=== PATIENT | male | born 1955 | race Caucasian/White ===

== ENCOUNTER → 2019-11-20 | Outpatient (CLI) | payer OTHER | END | disposition home or self-care (01) | LOC: LAB 10:48 | PROVIDERS: ATTEND Family Medicine | DX: M89.8X4 Other specified disorders of bone, hand (principal); M25.522 Pain in left elbow | CPT/HCPCS: 73080 ==

== ENCOUNTER → 2019-12-18 | Outpatient (CLI) | payer OTHER | END | disposition home or self-care (01) | LOC: LAB 08:29 | PROVIDERS: ATTEND Family Medicine | DX: N40.0 Benign prostatic hyperplasia without lower urinary tract symptoms (principal); E11.40 Type 2 diabetes mellitus with diabetic neuropathy, unspecified; M65.30 Trigger finger, unspecified finger; E11.9 Type 2 diabetes mellitus without complications; D75.1 Secondary polycythemia; R79.89 Other specified abnormal findings of blood chemistry ==

== ENCOUNTER 2020-08-06 02:29 | Emergency (ER) | payer OTHER ==
[2020-08-06] MEDS ORDERED: LIDOCAINE HCL 1% 20 ML VIAL ONE (02:51)
[2020-08-06] MEDS ORDERED: ACETAMINOPHEN EXTRA STRENGTH 500 MG TABLET ONE (03:24)
[2020-08-06] MEDS ORDERED: CLINDAMYCIN HCL 150 MG CAP ONE (03:24)
== END 2020-08-06 04:09 | disposition home or self-care (01) ==
LOC: EDH 02:29
DX: L02.212 Cutaneous abscess of back [any part, except buttock and flank] (principal); E11.9 Type 2 diabetes mellitus without complications; I10 Essential (primary) hypertension; Z90.49 Acquired absence of other specified parts of digestive tract
CPT/HCPCS: 10060

== ENCOUNTER 2020-08-07 22:29 | Emergency (ER) | payer OTHER | END 2020-08-07 23:24 | disposition home or self-care (01) | LOC: EDH 22:29 | DX: L02.222 Furuncle of back [any part, except buttock and flank] (principal); E11.9 Type 2 diabetes mellitus without complications; I10 Essential (primary) hypertension | CPT/HCPCS: 99281 ==

== ENCOUNTER → 2020-09-07 | Outpatient (CLI) | payer OTHER ==
[2020-09-07 09:55] LABS: BASOPHILS % (AUTO) 0.3 % (0.0-5.0); EOSINOPHILS % (AUTO) 3.5 % (0.0-8.0); HEMATOCRIT 44.4 % (42-54); LYMPHOCYTES % (AUTO) 36.8 % (21.0-51.0); MEAN CORPUSCULAR HEMOGLOBIN 31.5 pg (27.0-33.0); MEAN CORPUSCULAR HGB CONC 35.4 g/dL (32.0-36.0); MEAN CORPUSCULAR VOLUME 89.2 fL (79-99); MONOCYTES % (AUTO) 8.2 % (3.0-13.0); PLATELET COUNT (AUTO) 233 K/uL (130-400); RED BLOOD CELL COUNT(AUTO) 4.98 MIL/uL (4.50-6.20); RED CELL DISTRIBUTION WIDTH 12.9 % (11.0-15.5); WHITE BLOOD COUNT (AUTO) 9.2 K/uL (4.8-10.8)
[2020-09-07 09:57] LABS: APPEARANCE,URINE Clear (CLEAR); BILIRUBIN,URINE Negative (NEGATIVE); COLOR,URINE Yellow (YELLOW); GLUCOSE, URINE (UA) >=1000 mg/dL (NEGATIVE); KETONES,URINE Trace mg/dL (NEGATIVE); LEUKOCYTE ESTERASE ,URINE Negative (NEGATIVE); NITRATE,URINE Negative (NEGATIVE); OCCULT BLOOD,URINE Negative (NEGATIVE); PROTEIN,URINE Negative (NEGATIVE); UROBILINOGEN,URINE 0.2 mg/dL (0.2-1.0)
[2020-09-07 10:03] LABS: HEMOGLOBIN A1C 8.5 % (4.0-6.0)
[2020-09-07 10:13] LABS: RBC,URINE None Seen /HPF (0-1)
[2020-09-07 10:14] LABS: BACTERIA,URINE Rare /HPF (None Seen); SQUAMOUS EPITHELIAL CELL,UR None Seen /HPF (0-2); WBC,URINE 0-1 /HPF (0-1)
[2020-09-07 10:33] LABS: ALBUMIN 3.7 g/dL (3.5-5.0); BILIRUBIN,TOTAL 0.9 mg/dL (0.2-1.0); CREATININE 1.1 mg/dL (0.5-1.5); CRP QUANTITATIVE 4.9 mg/L (0.00-9.0); MAGNESIUM 1.9 mg/dL (1.80-2.40); POTASSIUM 3.7 mmol/L (3.5-5.1); THYROID STIMULATING HORMONE 4.58 uIU/mL (0.36-3.74); URIC ACID 6.4 mg/dL (2.6-7.2)
[2020-09-07 11:01] LABS: ERYTHROCYTE SEDIMENTATION RATE 3 MM/HR (0-20)
== END | disposition home or self-care (01) ==
LOC: RAH 07:31
PROVIDERS: ATTEND Family Medicine
DX: M16.11 Unilateral primary osteoarthritis, right hip (principal); R80.9 Proteinuria, unspecified; M25.522 Pain in left elbow; M25.50 Pain in unspecified joint; E11.40 Type 2 diabetes mellitus with diabetic neuropathy, unspecified; E78.5 Hyperlipidemia, unspecified; M25.551 Pain in right hip
CPT/HCPCS: 36415; 73502; 80053; 80061; 81001; 82043; 82306; 82607; 82627; 83036; 83090; 83735; 84153; 84154; 84403; 84439; 84443; 84481; 84550; 85025; 85651; 86140; 86376

== ENCOUNTER → 2020-10-12 | Outpatient (CLI) | payer OTHER | END | disposition home or self-care (01) | LOC: LAB 11:36 | PROVIDERS: ATTEND Internal Medicine Cardiovascular Disease | DX: Z20.822 Contact with and (suspected) exposure to COVID-19 (principal) | CPT/HCPCS: C9803; U0003 ==

== ENCOUNTER 2023-05-09 10:19 | Emergency (ER) | payer OTHER, MEDICARE ==
[~2023-05-09 10:19] MED LIST: GABA300C PO; IBUP-2070 PO; METH-811 PO; PRED20TA3 PO
[2023-05-09 10:33] VITALS: O2SAT 98
[2023-05-09 10:47] LABS: BASOPHILS # (AUTO) 0.04 K/uL (0.00-0.20); BASOPHILS % (AUTO) 0.6 % (0.0-5.0); EOSINOPHILS # (AUTO) 0.12 K/uL (0.00-0.70); EOSINOPHILS % (AUTO) 1.7 % (0.0-8.0); HEMATOCRIT 45.5 % (42-54); IMMATURE GRANULOCYTE ABSOLUTE 0.05 K/uL (0-1); LYMPHOCYTES # (AUTO) 2.4 K/uL (1.0-4.8); LYMPHOCYTES % (AUTO) 34.5 % (21.0-51.0); MEAN CORPUSCULAR HEMOGLOBIN 32.1 pg (27.0-33.0); MEAN CORPUSCULAR HGB CONC 35.4 g/dL (32.0-36.0); MEAN CORPUSCULAR VOLUME 90.6 fL (79-99); MONOCYTES # (AUTO) 0.6 K/uL (0.1-1.0); MONOCYTES % (AUTO) 8.7 % (3.0-13.0); NEUTROPHILS # (AUTO) 3.8 K/uL (1.8-7.7); NEUTROPHILS % (AUTO) 53.8 % (40.0-77.0); PLATELET COUNT (AUTO) 310 K/uL (130-400); RED BLOOD CELL COUNT(AUTO) 5.02 MIL/uL (4.50-6.20); RED CELL DISTRIBUTION WIDTH 12.8 % (11.0-15.5)
[2023-05-09 11:06] LABS: B-TYPE NATRIURETIC PEPTIDE 23 pg/mL (0-100)
[2023-05-09 11:15] LABS: CREATININE 1.1 mg/dL (0.5-1.5); POTASSIUM 4.2 mmol/L (3.5-5.1)
[2023-05-09 11:20] LABS: BILIRUBIN,TOTAL 0.8 mg/dL (0.2-1.0); MAGNESIUM 1.8 mg/dL (1.80-2.40); TOTAL PROTEIN, SERUM 7.7 g/dL (6.0-8.3)
[2023-05-09] MEDS ORDERED: KETOROLAC 15MG/ML VIAL (15MG/ML) IV ONE (13:00)
[2023-05-09 15:08] VITALS: BP 170/76; PULSE 72; RESP 18
[2023-05-09] MEDS ORDERED: NAPR-1180 PO (15:10)
[2023-05-09 21:21] LABS: ADD UA MICROSCOPIC YES; APPEARANCE,URINE CLEAR (CLEAR); BILIRUBIN,URINE NEGATIVE (NEGATIVE); COLOR,URINE LIGHT-YELLOW (YELLOW); GLUCOSE, URINE (UA) >=1000 mg/dL (NEGATIVE); KETONES,URINE NEGATIVE (NEGATIVE); LEUKOCYTE ESTERASE ,URINE NEGATIVE Leu/uL (NEGATIVE); NITRATE,URINE NEGATIVE (NEGATIVE); OCCULT BLOOD,URINE NEGATIVE (NEGATIVE); PROTEIN,URINE 10 mg/dL (NEGATIVE); UROBILINOGEN,URINE 0.2 mg/dL (0.2-1.0)
[2023-05-09 21:23] LABS: MUCUS,URINE RARE LPF (None Seen); RBC,URINE 0-1 /HPF (0-1); SQUAMOUS EPITHELIAL CELL,UR RARE /HPF (0-2); WBC,URINE 0-1 /HPF (0-1)
== END 2023-05-09 15:23 | disposition home or self-care (01) ==
LOC: EDH 10:19
DX: R07.89 Other chest pain (principal); I10 Essential (primary) hypertension; Z79.899 Other long term (current) drug therapy
CPT/HCPCS: 99285; 96374; 71045; 82550; 83735; 84484 ×2; 80053; 83880; 85025; 85378; 85730; 81001; 36415; 93005; J1885

== ENCOUNTER → 2023-05-11 | Outpatient (CLI) | payer OTHER, MEDICARE ==
[~2023-05-11] MED LIST changes: +NAPR-1180 PO
[2023-05-11 09:04] LABS: HEMOGLOBIN A1C 9.8 % (4.0-6.0)
[2023-05-11 09:25] LABS: ALBUMIN 3.8 g/dL (3.5-5.0); BILIRUBIN,TOTAL 0.8 mg/dL (0.2-1.0); CREATININE 1.1 mg/dL (0.5-1.5); POTASSIUM 4.4 mmol/L (3.5-5.1); THYROID STIMULATING HORMONE 3.18 uIU/mL (0.36-3.74); TOTAL PROTEIN, SERUM 7.6 g/dL (6.0-8.3)
[2023-05-11 09:32] LABS: T4 (THYROXINE) 8.8 ug/dL (4.7-13.3)
== END | disposition home or self-care (01) ==
LOC: RAH 07:38
PROVIDERS: ATTEND Physical Medicine & Rehabilitation
DX: M16.0 Bilateral primary osteoarthritis of hip (principal)
CPT/HCPCS: 36415; 73521; 80053; 83036; 84436; 84443; 84479

== ENCOUNTER → 2023-05-29 | Outpatient (CLI) | payer OTHER, MEDICARE ==
[2023-05-29 08:26] LABS: CHOLESTEROL 289 mg/dL (<200); HDL CHOLESTEROL 50 mg/dL (29-71); LDL DIRECT 164 mg/dL (0-99); TRIGLYCERIDES 328 mg/dL (30-200)
== END | disposition home or self-care (01) ==
LOC: LAB 07:50
PROVIDERS: ATTEND Internal Medicine
DX: Z12.11 Encounter for screening for malignant neoplasm of colon (principal); I12.9 Hypertensive chronic kidney disease with stage 1 through stage 4 chronic kidney disease, or unspecified chronic kidney disease; N18.9 Chronic kidney disease, unspecified; E78.2 Mixed hyperlipidemia
CPT/HCPCS: 36415; 80061; 82043; 82570; 84153

== ENCOUNTER 2023-06-20 05:52 | Day surgery (SDC) | payer OTHER, MEDICARE ==
[~2023-06-20] VITALS: Ht 170.2 cm; Wt 74.8 kg
[2023-06-20] VITALS (11 sets, daily range): BP systolic 118–145; BP diastolic 59–96; PULSE 66–88; RESP 15–17
[~2023-06-20 05:52] MED LIST changes: +EMPA10TA PO; -GABA300C PO; -IBUP-2070 PO; +LISI20TA24 PO; +METF-444 PO; -METH-811 PO; +NAPR-1023 PO; -NAPR-1180 PO; -PRED20TA3 PO
[2023-06-20] MEDS ORDERED: 0.9%NACL 1000ML 1,000 ML IV ONE (06:30)
[2023-06-20] MEDS ORDERED: PROPOFOL 10 MG/ML 20ML VIAL IV ONE ×2 (08:14)
== END 2023-06-20 10:00 | disposition home or self-care (01) ==
LOC: DAH 05:52 → ENDO 05:52
PROVIDERS: ATTEND Internal Medicine Gastroenterology
DX: Z12.11 Encounter for screening for malignant neoplasm of colon (principal); K21.00 Gastro-esophageal reflux disease with esophagitis, without bleeding; D12.4 Benign neoplasm of descending colon; K62.1 Rectal polyp; K57.30 Diverticulosis of large intestine without perforation or abscess without bleeding; R07.89 Other chest pain; K29.50 Unspecified chronic gastritis without bleeding; I10 Essential (primary) hypertension; E11.9 Type 2 diabetes mellitus without complications; Z90.89 Acquired absence of other organs; Z79.84 Long term (current) use of oral hypoglycemic drugs; Z79.899 Other long term (current) drug therapy
CPT/HCPCS: 82948 ×2; 43239; 45380; 45385; J7030 ×2; J2704 ×2; A4620; A4215 ×2; A4223; A4657; A7002; A4222; A4221; A4663; A4606; J3490

== ENCOUNTER → 2023-08-10 | Outpatient (CLI) | payer OTHER, MEDICARE ==
[2023-08-10 08:21] LABS: BASOPHILS # (AUTO) 0.03 K/uL (0.00-0.20); BASOPHILS % (AUTO) 0.4 % (0.0-5.0); EOSINOPHILS # (AUTO) 0.09 K/uL (0.00-0.70); EOSINOPHILS % (AUTO) 1.3 % (0.0-8.0); HEMATOCRIT 45.9 % (42-54); IMMATURE GRANULOCYTE ABSOLUTE 0.04 K/uL (0-1); LYMPHOCYTES # (AUTO) 1.4 K/uL (1.0-4.8); LYMPHOCYTES % (AUTO) 19.8 % (21.0-51.0); MEAN CORPUSCULAR HEMOGLOBIN 31.4 pg (27.0-33.0); MEAN CORPUSCULAR HGB CONC 34.6 g/dL (32.0-36.0); MEAN CORPUSCULAR VOLUME 90.7 fL (79-99); MONOCYTES # (AUTO) 0.5 K/uL (0.1-1.0); MONOCYTES % (AUTO) 6.8 % (3.0-13.0); NEUTROPHILS % (AUTO) 71.1 % (40.0-77.0); PLATELET COUNT (AUTO) 308 K/uL (130-400); RED BLOOD CELL COUNT(AUTO) 5.06 MIL/uL (4.50-6.20); RED CELL DISTRIBUTION WIDTH 12.5 % (11.0-15.5)
[2023-08-10 08:35] LABS: INR <= 0.93 (0.85-1.15); PROTHROMBIN TIME 10.5 SEC (9.6-11.6)
[2023-08-10 08:37] LABS: HEMOGLOBIN A1C 9.6 % (4.0-6.0); PARTIAL THROMBOPLASTIN TIME 28.2 SEC (26.3-35.5)
[2023-08-10 08:49] LABS: ALBUMIN 4.1 g/dL (3.5-5.0); BILIRUBIN,TOTAL 0.7 mg/dL (0.2-1.0); CREATININE 1.2 mg/dL (0.5-1.5); POTASSIUM 4.5 mmol/L (3.5-5.1); THYROID STIMULATING HORMONE 3.61 uIU/mL (0.36-3.74); TOTAL PROTEIN, SERUM 7.5 g/dL (6.0-8.3)
== END | disposition home or self-care (01) ==
LOC: LAB 07:00
PROVIDERS: ATTEND Internal Medicine
DX: Z01.818 Encounter for other preprocedural examination (principal); Z13.29 Encounter for screening for other suspected endocrine disorder; N40.1 Benign prostatic hyperplasia with lower urinary tract symptoms; E78.2 Mixed hyperlipidemia; E11.65 Type 2 diabetes mellitus with hyperglycemia
CPT/HCPCS: 36415; 80053; 80061; 82043; 82570; 83036; 84153; 84443; 85025; 85610; 85730

== ENCOUNTER 2023-09-24 11:32 | Emergency (ER) | payer OTHER, MEDICARE ==
[~2023-09-24] VITALS: Ht 170.2 cm; Wt 77.1 kg
[2023-09-24 12:29] LABS: BASOPHILS # (AUTO) 0.04 K/uL (0.00-0.20); BASOPHILS % (AUTO) 0.5 % (0.0-5.0); EOSINOPHILS # (AUTO) 0.39 K/uL (0.00-0.70); EOSINOPHILS % (AUTO) 5.1 % (0.0-8.0); HEMATOCRIT 47.2 % (42-54); IMMATURE GRANULOCYTE ABSOLUTE 0.02 K/uL (0-1); LYMPHOCYTES # (AUTO) 1.9 K/uL (1.0-4.8); LYMPHOCYTES % (AUTO) 24.3 % (21.0-51.0); MEAN CORPUSCULAR HEMOGLOBIN 31.5 pg (27.0-33.0); MEAN CORPUSCULAR HGB CONC 35.4 g/dL (32.0-36.0); MEAN CORPUSCULAR VOLUME 89.1 fL (79-99); MONOCYTES # (AUTO) 0.5 K/uL (0.1-1.0); MONOCYTES % (AUTO) 6.9 % (3.0-13.0); NEUTROPHILS # (AUTO) 4.8 K/uL (1.8-7.7); NEUTROPHILS % (AUTO) 62.9 % (40.0-77.0); PLATELET COUNT (AUTO) 264 K/uL (130-400); RED CELL DISTRIBUTION WIDTH 13.1 % (11.0-15.5); WHITE BLOOD COUNT (AUTO) 7.7 K/uL (4.8-10.8)
[2023-09-24] MEDS: 0.9%NACL 1000ML 1,000 ML IV ONE (12:35)
[2023-09-24 12:42] LABS: CREATININE 1.4 mg/dL (0.5-1.3); POTASSIUM 4.3 mmol/L (3.5-5.1)
[2023-09-24 12:46] LABS: ALBUMIN 3.9 g/dL (3.5-5.0); BILIRUBIN,TOTAL 0.9 mg/dL (0.2-1.0); MAGNESIUM 1.7 mg/dL (1.80-2.40); TOTAL PROTEIN, SERUM 7.1 g/dL (6.0-8.3)
[2023-09-24 15:42] VITALS: BP 115/96; PULSE 78; RESP 18; O2SAT 99
== END 2023-09-24 15:52 | disposition home or self-care (01) ==
LOC: EDH 11:32
DX: N17.9 Acute kidney failure, unspecified (principal); I95.9 Hypotension, unspecified; E86.0 Dehydration; I10 Essential (primary) hypertension; E11.9 Type 2 diabetes mellitus without complications; E78.00 Pure hypercholesterolemia, unspecified; Z79.84 Long term (current) use of oral hypoglycemic drugs; Z79.899 Other long term (current) drug therapy; Z90.89 Acquired absence of other organs; Z98.890 Other specified postprocedural states
CPT/HCPCS: 99285; 96360; 71045; 83735; 84484; 80053; 85025; 36415; 93005; J7030

== ENCOUNTER 2023-11-19 15:12 | Observation (INO) | payer OTHER, MEDICARE ==
[~2023-11-19] VITALS: Ht 170.2 cm; Wt 72.8 kg
[2023-11-19] MEDS ORDERED: IOHEXOL-350 75 ML VIAL IV ONE (15:30)
[2023-11-19 15:44] LABS: BASOPHILS # (AUTO) 0.04 K/uL (0.00-0.20); BASOPHILS % (AUTO) 0.5 % (0.0-5.0); EOSINOPHILS # (AUTO) 0.06 K/uL (0.00-0.70); EOSINOPHILS % (AUTO) 0.7 % (0.0-8.0); HEMATOCRIT 45.7 % (42-54); IMMATURE GRANULOCYTE ABSOLUTE 0.05 K/uL (0-1); LYMPHOCYTES # (AUTO) 2.2 K/uL (1.0-4.8); LYMPHOCYTES % (AUTO) 25.7 % (21.0-51.0); MEAN CORPUSCULAR HEMOGLOBIN 31.3 pg (27.0-33.0); MEAN CORPUSCULAR HGB CONC 34.6 g/dL (32.0-36.0); MEAN CORPUSCULAR VOLUME 90.5 fL (79-99); MONOCYTES # (AUTO) 0.7 K/uL (0.1-1.0); MONOCYTES % (AUTO) 7.8 % (3.0-13.0); NEUTROPHILS # (AUTO) 5.4 K/uL (1.8-7.7); NEUTROPHILS % (AUTO) 64.7 % (40.0-77.0); PLATELET COUNT (AUTO) 302 K/uL (130-400); RED BLOOD CELL COUNT(AUTO) 5.05 MIL/uL (4.50-6.20); RED CELL DISTRIBUTION WIDTH 12.8 % (11.0-15.5); WHITE BLOOD COUNT (AUTO) 8.4 K/uL (4.8-10.8)
[2023-11-19 15:56] LABS: INR <= 0.93 (0.85-1.15); PROTHROMBIN TIME 10.9 SEC (9.6-11.6)
[2023-11-19 15:57] LABS: PARTIAL THROMBOPLASTIN TIME 26.2 SEC (26.3-35.5)
[2023-11-19 16:01] LABS: B-TYPE NATRIURETIC PEPTIDE 35 pg/mL (0-100)
[2023-11-19 16:02] LABS: ALBUMIN 3.7 g/dL (3.5-5.0); BILIRUBIN,TOTAL 0.7 mg/dL (0.2-1.0); CREATININE 1.7 mg/dL (0.5-1.3); POTASSIUM 4.4 mmol/L (3.5-5.1)
[2023-11-19] MEDS ORDERED: OMEP40CA21 PO (16:53)
[2023-11-19] MEDS ORDERED: DULA0.75 SQ (16:53)
[2023-11-19] MEDS ORDERED: LISI10TA24 PO (16:53)
[2023-11-19] MEDS ORDERED: METF-444 PO (16:53)
[2023-11-19] MEDS ORDERED: TAMS-1 PO (16:53)
[2023-11-19] MEDS: ASPIRIN 325MG EC TAB PO ONE (17:26)
[2023-11-19] MEDS: 0.9%NACL 1000ML 1,000 ML IV SCH (17:26)
[2023-11-19] MEDS ORDERED: ONDANSETRON 4MG INJ IV PRN (17:30)
[2023-11-19] MEDS ORDERED: DEXTROSE 50%-WATER 50 ML DISP.SYRIN IV PRN (17:30)
[2023-11-19] MEDS ORDERED: MAG/ALUM/SIMETH 30 ML UDCUP PO PRN (17:30)
[2023-11-19] MEDS ORDERED: GLUCAGON 1MG KIT 1 MG ML IM PRN (17:30)
[2023-11-19] MEDS ORDERED: ACETAMINOPHEN 325 MG TAB PO PRN ×2 (17:30)
[2023-11-19] MEDS ORDERED: POTASSIUM CHLORIDE 20MEQ/100ML 100 ML IV PRN (17:30)
[2023-11-19] MEDS ORDERED: LACTULOSE 20 GM/30 ML UDCUP PO PRN (17:30)
[2023-11-19] MEDS ORDERED: POTASSIUM CHLORIDE 10% ELIXIR 20 MEQ/15 ML UDCUP PO PRN (17:30)
[2023-11-19] MEDS ORDERED: KCL 20 MEQ ERTAB PO PRN (17:30)
[2023-11-19 19:35] VITALS: O2SAT 100
[2023-11-19] MEDS: ATORVASTATIN 20 MG TABLET PO SCH (20:52)
[2023-11-19] MEDS: INSULIN HUMULIN R 100 UNIT/ML 3ML SQ SCH (21:00)
[2023-11-19 21:30] VITALS: BP 156/75; PULSE 73; RESP 20
[2023-11-19 23:08] VITALS: BP 148/72; PULSE 70; RESP 18
[2023-11-20 03:35] VITALS: BP 139/79; PULSE 67; RESP 19
[2023-11-20 05:10] LABS: HEMATOCRIT 39.5 % (42-54); MEAN CORPUSCULAR HEMOGLOBIN 30.9 pg (27.0-33.0); MEAN CORPUSCULAR HGB CONC 34.9 g/dL (32.0-36.0); MEAN CORPUSCULAR VOLUME 88.6 fL (79-99); RED BLOOD CELL COUNT(AUTO) 4.46 MIL/uL (4.50-6.20); RED CELL DISTRIBUTION WIDTH 12.8 % (11.0-15.5); WHITE BLOOD COUNT (AUTO) 6.2 K/uL (4.8-10.8)
[2023-11-20 05:23] LABS: CREATININE 1.1 mg/dL (0.5-1.3)
[2023-11-20 08:20] VITALS: BP 143/84; PULSE 74; RESP 16
[2023-11-20] MEDS: PANTOPRAZOLE 40 MG TAB DR PO SCH (08:59)
[2023-11-20] MEDS: CLOPIDOGREL 75MG TAB PO SCH (08:59)
[2023-11-20] MEDS: EMPAGLIFLOZIN 10MG TABLET PO SCH (08:59)
[2023-11-20] MEDS: ASPIRIN 81 MG EC TAB PO SCH (08:59)
[2023-11-20] MEDS: LISINOPRIL 10 MG TABLET PO SCH (09:00)
[2023-11-20 11:41] VITALS: BP 141/85; PULSE 62; RESP 16
[2023-11-20 15:56] VITALS: BP 157/86; PULSE 73; RESP 16
[2023-11-20] MEDS: TAMSULOSIN HCL 0.4 MG CAP.ER.24H PO SCH (16:43)
[2023-11-20] MEDS ORDERED: ROSU20TA73 PO (18:05)
[2023-11-20] MEDS ORDERED: AEC81 PO (18:07)
== END 2023-11-20 19:40 | disposition home or self-care (01) ==
LOC: EDH 15:12 → EDHIP 17:08 → 4CH 19:52
PROVIDERS: ADMIT Internal Medicine; ATTEND Internal Medicine
DX: R47.81 Slurred speech (principal); R42 Dizziness and giddiness; I63.9 Cerebral infarction, unspecified; I10 Essential (primary) hypertension; E11.65 Type 2 diabetes mellitus with hyperglycemia; G45.9 Transient cerebral ischemic attack, unspecified; E78.5 Hyperlipidemia, unspecified; N40.0 Benign prostatic hyperplasia without lower urinary tract symptoms; N40.1 Benign prostatic hyperplasia with lower urinary tract symptoms; K21.9 Gastro-esophageal reflux disease without esophagitis; N13.8 Other obstructive and reflux uropathy; Z79.899 Other long term (current) drug therapy; Z79.84 Long term (current) use of oral hypoglycemic drugs; Z86.73 Personal history of transient ischemic attack (TIA), and cerebral infarction without residual deficits; Z79.82 Long term (current) use of aspirin
CPT/HCPCS: 96360; 96361 ×2; 82550; 83721; 84484; 80053; 83880; 85025; 85610; 85730; 82948 ×5; 36415 ×2; 71045; 70450; 70496; 70498; 70551; 99291; 93005; 96372; 80048; 85027; 92522; 92610; G0378 ×25; J7030; Q9967; 59025; G0379

== ENCOUNTER → 2023-12-11 | Outpatient (CLI) | payer OTHER, MEDICARE ==
[~2023-12-11] MED LIST changes: +AEC81 PO; +DULA0.75 SQ; -LISI20TA24 PO; -METF-444 PO; -NAPR-1023 PO; +OMEP40CA21 PO; +ROSU20TA73 PO; +TAMS-1 PO
[2023-12-11 15:26] LABS: ALBUMIN 3.8 g/dL (3.5-5.0); BILIRUBIN,TOTAL 0.8 mg/dL (0.2-1.0); CREATININE 1.1 mg/dL (0.5-1.3); POTASSIUM 4.1 mmol/L (3.5-5.1); TOTAL PROTEIN, SERUM 7.3 g/dL (6.0-8.3)
[2023-12-11 15:28] LABS: HEMOGLOBIN A1C 9.2 % (4.0-6.0)
== END | disposition home or self-care (01) ==
LOC: RAH 14:33
PROVIDERS: ATTEND Internal Medicine
DX: M47.816 Spondylosis without myelopathy or radiculopathy, lumbar region (principal); M16.11 Unilateral primary osteoarthritis, right hip; M25.851 Other specified joint disorders, right hip; E78.2 Mixed hyperlipidemia; E11.65 Type 2 diabetes mellitus with hyperglycemia; M25.551 Pain in right hip; M54.59 Other low back pain
CPT/HCPCS: 36415; 72100; 73502; 80053; 80061; 82043; 82570; 83036

== ENCOUNTER → 2024-02-11 | Outpatient (CLI) | payer OTHER, MEDICARE ==
[2024-02-11] MEDS: REGADENOSON 0.4 MG/5 ML PF SYG IVP ONE (10:15)
== END | disposition home or self-care (01) ==
LOC: SHCH 08:26
PROVIDERS: ATTEND Internal Medicine Cardiovascular Disease
DX: I25.10 Atherosclerotic heart disease of native coronary artery without angina pectoris (principal); R06.00 Dyspnea, unspecified
CPT/HCPCS: 78452; 96374; 93017; J2785; A9500 ×2

== ENCOUNTER → 2024-06-27 | Outpatient (CLI) | payer OTHER, MEDICARE ==
[~2024-06-27] MED LIST changes: -ROSU20TA73 PO; +ROSU20TA98 PO
[2024-06-27 08:01] LABS: BASOPHILS # (AUTO) 0.03 K/uL (0.00-0.20); BASOPHILS % (AUTO) 0.4 % (0.0-5.0); EOSINOPHILS # (AUTO) 0.16 K/uL (0.00-0.70); EOSINOPHILS % (AUTO) 2.2 % (0.0-8.0); HEMATOCRIT 45.4 % (42-54); IMMATURE GRANULOCYTE ABSOLUTE 0.03 K/uL (0-1); LYMPHOCYTES # (AUTO) 2.8 K/uL (1.0-4.8); LYMPHOCYTES % (AUTO) 38.2 % (21.0-51.0); MEAN CORPUSCULAR HEMOGLOBIN 31.5 pg (27.0-33.0); MEAN CORPUSCULAR VOLUME 89.9 fL (79-99); MONOCYTES # (AUTO) 0.7 K/uL (0.1-1.0); MONOCYTES % (AUTO) 9.5 % (3.0-13.0); NEUTROPHILS # (AUTO) 3.7 K/uL (1.8-7.7); NEUTROPHILS % (AUTO) 49.3 % (40.0-77.0); PLATELET COUNT (AUTO) 293 K/uL (130-400); RED BLOOD CELL COUNT(AUTO) 5.05 MIL/uL (4.50-6.20); RED CELL DISTRIBUTION WIDTH 13.2 % (11.0-15.5); WHITE BLOOD COUNT (AUTO) 7.4 K/uL (4.8-10.8)
[2024-06-27 08:17] LABS: HEMOGLOBIN A1C 7.4 % (4.0-6.0)
[2024-06-27 08:25] LABS: ALBUMIN 3.4 g/dL (3.5-5.0); BILIRUBIN,TOTAL 0.7 mg/dL (0.2-1.0); CREATININE 1.3 mg/dL (0.5-1.3); POTASSIUM 4.1 mmol/L (3.5-5.1); TOTAL PROTEIN, SERUM 6.9 g/dL (6.0-8.3)
== END | disposition home or self-care (01) ==
LOC: LAB 07:14
PROVIDERS: ATTEND Internal Medicine
DX: I12.9 Hypertensive chronic kidney disease with stage 1 through stage 4 chronic kidney disease, or unspecified chronic kidney disease (principal); N18.9 Chronic kidney disease, unspecified; E11.22 Type 2 diabetes mellitus with diabetic chronic kidney disease; E78.2 Mixed hyperlipidemia
CPT/HCPCS: 36415; 80053; 80061; 83036; 85025

== ENCOUNTER → 2024-07-21 | Outpatient (CLI) | payer OTHER, MEDICARE | END | disposition home or self-care (01) | LOC: LAB 10:31 | PROVIDERS: ATTEND Urology | DX: E29.1 Testicular hypofunction (principal) | CPT/HCPCS: 36415; 84402; 84403 ==

== ENCOUNTER → 2024-08-06 | Outpatient (CLI) | payer OTHER, MEDICARE ==
[2024-08-06 09:14] LABS: BASOPHILS # (AUTO) 0.03 K/uL (0.00-0.20); BASOPHILS % (AUTO) 0.4 % (0.0-5.0); EOSINOPHILS # (AUTO) 0.17 K/uL (0.00-0.70); EOSINOPHILS % (AUTO) 2.2 % (0.0-8.0); HEMATOCRIT 48.4 % (42-54); IMMATURE GRANULOCYTE ABSOLUTE 0.03 K/uL (0-1); LYMPHOCYTES # (AUTO) 2.5 K/uL (1.0-4.8); LYMPHOCYTES % (AUTO) 31.8 % (21.0-51.0); MEAN CORPUSCULAR HEMOGLOBIN 31.1 pg (27.0-33.0); MEAN CORPUSCULAR HGB CONC 33.9 g/dL (32.0-36.0); MEAN CORPUSCULAR VOLUME 91.7 fL (79-99); MONOCYTES # (AUTO) 0.5 K/uL (0.1-1.0); MONOCYTES % (AUTO) 6.9 % (3.0-13.0); NEUTROPHILS # (AUTO) 4.5 K/uL (1.8-7.7); NEUTROPHILS % (AUTO) 58.3 % (40.0-77.0); PLATELET COUNT (AUTO) 290 K/uL (130-400); RED BLOOD CELL COUNT(AUTO) 5.28 MIL/uL (4.50-6.20); RED CELL DISTRIBUTION WIDTH 12.5 % (11.0-15.5); WHITE BLOOD COUNT (AUTO) 7.7 K/uL (4.8-10.8)
[2024-08-06 09:23] LABS: HEMOGLOBIN A1C 6.9 % (4.0-6.0)
[2024-08-06 09:41] LABS: ALBUMIN 3.7 g/dL (3.5-5.0); POTASSIUM 4.5 mmol/L (3.5-5.1); THYROID STIMULATING HORMONE 3.39 uIU/mL (0.36-3.74); TOTAL PROTEIN, SERUM 7.4 g/dL (6.0-8.3)
[2024-08-06 09:53] LABS: ADD UA MICROSCOPIC YES; APPEARANCE,URINE CLEAR (CLEAR); BILIRUBIN,URINE NEGATIVE (NEGATIVE); COLOR,URINE LIGHT-YELLOW (YELLOW); GLUCOSE, URINE (UA) >=1000 mg/dL (NEGATIVE); KETONES,URINE 10 mg/dL (NEGATIVE); LEUKOCYTE ESTERASE ,URINE NEGATIVE Leu/uL (NEGATIVE); NITRATE,URINE NEGATIVE (NEGATIVE); OCCULT BLOOD,URINE NEGATIVE (NEGATIVE); PH,URINE 5.5 (5.0-8.0); PROTEIN,URINE 20 mg/dL (NEGATIVE); UROBILINOGEN,URINE 0.2 mg/dL (0.2-1.0)
[2024-08-06 10:10] LABS: INR 0.96 (0.85-1.15); PROTHROMBIN TIME 10.8 SEC (9.6-11.6)
[2024-08-06 10:11] LABS: PARTIAL THROMBOPLASTIN TIME 29.9 SEC (26.3-35.5)
[2024-08-06 10:14] LABS: RBC,URINE 0-1 /HPF (0-1)
[2024-08-06 10:15] LABS: BACTERIA,URINE None Seen /HPF (None Seen); SQUAMOUS EPITHELIAL CELL,UR 0-2 /HPF (0-2)
--- NOTE | 2024-08-06 10:33 | HMCIMG ---
Exam Type: CHEST PA, LATERAL AND LORDOTIC Clinical Information: ENCOUNTER FOR OTHER PREPROCEDURAL EXAMINATION Comparison: None Findings: The lungs are clear of infiltrates. The heart is normal in size. The bony and soft tissue structures of the chest are unremarkable. Impression: Clear lungs.
== END | disposition home or self-care (01) ==
LOC: LAB 08:04
PROVIDERS: ATTEND Internal Medicine
DX: Z01.818 Encounter for other preprocedural examination (principal); N40.1 Benign prostatic hyperplasia with lower urinary tract symptoms; I12.9 Hypertensive chronic kidney disease with stage 1 through stage 4 chronic kidney disease, or unspecified chronic kidney disease; E11.22 Type 2 diabetes mellitus with diabetic chronic kidney disease; E11.65 Type 2 diabetes mellitus with hyperglycemia; N18.2 Chronic kidney disease, stage 2 (mild); E78.2 Mixed hyperlipidemia; R97.20 Elevated prostate specific antigen [PSA]; M48.02 Spinal stenosis, cervical region
CPT/HCPCS: 36415; 71047; 80053; 80061; 81001; 82043; 82570; 83036; 84153; 84443; 85025; 85610; 85730

== ENCOUNTER → 2024-08-07 | Outpatient (CLI) | payer OTHER, MEDICARE | END | disposition home or self-care (01) | LOC: LAB 07:28 | PROVIDERS: ATTEND Urology | DX: E29.1 Testicular hypofunction (principal) | CPT/HCPCS: 36415; 84402; 84403 ==

== ENCOUNTER 2024-08-25 05:43 | Inpatient (IN) | payer OTHER, MEDICARE ==
[2024-08-20 11:57] VITALS: BP 144/67; PULSE 78; RESP 15; TEMP 98.4
[2024-08-25] VITALS (25 sets, daily range): BP systolic 120–165; BP diastolic 66–91; PULSE 67–97; RESP 14–20; TEMP 97.1–98.7; O2SAT 94–97
[~2024-08-25] VITALS: Ht 170.2 cm; Wt 73.9 kg
[~2024-08-25 05:43] MED LIST changes: -DULA0.75 SQ; +METF-446 PO; -ROSU20TA98 PO; +ROSU40TA88 PO; +TESTOSTERONE INJ; +TRULICITY SQ
[2024-08-25] MEDS: acetaMINOPHEN 100 ML ONE (06:37)
[2024-08-25] MEDS: FAMOTIDINE 20MG VIAL IV ONE (06:37)
[2024-08-25] MEDS ORDERED: ROPivacaine 0.5% 5MG/ML 30ML ONE (06:38)
[2024-08-25] MEDS ORDERED: ketaMINE 50MG/ML SYRINGE 50 MG/ML DISP.SYRIN ONE (06:38)
[2024-08-25] MEDS ORDERED: LIDOCAINE PF 100MG/5ML (2%) SYRINGE 5ML ONE (06:43)
[2024-08-25] MEDS ORDERED: proPOFol 10 MG/ML 20ML VIAL IV ONE (06:44)
[2024-08-25] MEDS ORDERED: FENTanyl CITRate PF 50 MCG/1 ML 2ML VIAL ONE (06:44)
[2024-08-25] MEDS ORDERED: rocuRONium bROMide 10MG/1ML 5ML VL ONE (06:44)
[2024-08-25] MEDS: ceFAZolin SODIUM 2 GM VIAL ONE (06:48)
[2024-08-25] MEDS: 0.9%NACL 1000ML 1,000 ML IV ONE (06:48)
[2024-08-25] MEDS ORDERED: TRANEXAMIC ACID 1000MG/10ML ONE (06:51)
--- NOTE | 2024-08-25 07:18 | DS ---
Discharge Summary Hospital Course Summary: The patient was admitted to the hospital postoperatively on 08/25/2024 after undergoing right total hip arthroplasty. They did well with routine postoperative pain control. They worked well with physical therapy. They developed some acute blood loss anemia but remained asymptomatic. The hospital course was otherwise uncomplicated. They were subsequently able to be discharged on postoperative day [] once discharge arrangements were made with []. Perianesthesia Nurse(s): none Procedure(s): Right total hip arthroplasty, 08/25/2024 Assessment/Plan: ASSESSMENT: Status post right total hip arthroplasty PLAN: See discharge instructions Discharge Instructions: Begin working with physical therapy at the facility. Remembered do not flex the hip more than 90 and do not cross midline at the knees or ankles for the 1st six weeks. If you are side sleeper place a pillow between the knees and ankles to prevent the legs from crossing. Dressing may be removed 08/27/2024 and left open to air. Showers ok allowing soap and water to run over the wound. Pat dry. Do not submerge wound in tub/pool. Do not apply ointments. Do not apply Betadine. Do not apply peroxide. Ice packs to decrease pain/swelling. Prescriptions have been sent to the pharmacy: *[place] 5/325mg 1-2 tab every 6 hours as needed for severe pain. (please call for refills) Cyclobenzaprine 5mg 1 tab every 8 hours as needed for muscle spasm pain. Gabapentin 100mg 1 tab every 8 hours (may discontinue if drowsy). Colace 100mg 1 tab orally twice a day as needed for constipation. Aspirin 325mg twice a day for 30 days to prevent blood clots. Then you may resume your normal baby aspirin. Call for a follow-up appointment in 2-3 weeks at [facility]. Home Medications: Active Scripts Aspirin (ASPIRIN 81 MG ECTAB) 81 Mg Ectab, 81 MG PO DAILY, #90 TAB.EC Prov:MELANIE BROOKS MD 11/20/23 Tamsulosin HCl (Flomax) 0.4 Mg Cap.er.24h, 0.4 MG PO DAILYDINNER, #90 CAPSULE. Prov:MELANIE BROOKS MD 11/19/23 Omeprazole (Omeprazole) 40 Mg Capsule., 40 MG PO AM, #90 CAP Prov:MELANIE BROOKS MD 11/19/23 Reported Medications [Testosterone] No Conflict Check, INJ Q2WK 08/20/24 Rosuvastatin Calcium (Rosuvastatin Calcium) 40 Mg Tablet, 40 MG PO HS, TAB 08/20/24 Metformin HCl (Metformin HCl) 1,000 Mg Tablet, 1000 MG PO BID, TAB 08/20/24 [Trulicity] No Conflict Check, 3 MG SQ SAT 08/20/24 Empagliflozin (Jardiance) 10 Mg Tablet, 10 MG PO DAILY, TAB 06/19/23 Discontinued Scripts Rosuvastatin Calcium (Rosuvastatin Calcium) 20 Mg Tablet, 20 MG PO DAILY, #90 TAB Prov:MELANIE BROOKS MD 11/20/23 Dulaglutide (Trulicity) 0.75 Mg/0.5 Ml Pen.injctr, 0.75 MG SQ QWEEK, #2 ML Prov:MELANIE BROOKS MD 11/19/23 FLORENTIN ALEX MD Aug 25, 2024 07:18
[2024-08-25] MEDS ORDERED: ondanSETRON 4MG INJ ONE (07:24)
[2024-08-25] MEDS ORDERED: dexaMETHasone SOD PHOSPHATE 10MG/ML 1ML VIAL ONE (07:24)
[2024-08-25] MEDS ORDERED: PoTASSium chl 10% ELIXIR 20MEQ 20 MEQ/15 ML UDCUP PO PRN (07:30)
[2024-08-25] MEDS ORDERED: ketOROlac 15MG/ML VIAL (15MG/ML) IV SCH (07:30)
[2024-08-25] MEDS: INSULIN humuLIN R 100 UNIT/ML 3ML SQ SCH (07:30)
[2024-08-25] MEDS ORDERED: ondanSETRON 4MG INJ IVP PRN (07:30)
[2024-08-25] MEDS ORDERED: HYDROcodone/APAP 5/325 1 TAB TABLET PO PRN ×2 (07:30→08:00)
[2024-08-25] MEDS: 0.9%NACL 1000ML 1,000 ML IV SCH (07:30)
[2024-08-25] MEDS ORDERED: PoTASSium chloRIDE 20MEQ/100ML 100 ML IV PRN (07:30)
[2024-08-25] MEDS ORDERED: PoTASSium chloRIDE 20MEQ ER 20 MEQ ERTAB PO PRN (07:30)
[2024-08-25] MEDS: ceFAZolin SODIUM 2 GM VIAL IVPB ONE (07:30)
[2024-08-25] MEDS ORDERED: FERROUS FUMARATE 324 MG TABLET PO PRN (07:30)
[2024-08-25] MEDS ORDERED: CALCIUM CARB 500MG PO PRN (07:30)
[2024-08-25] MEDS: metFORmin HCL 500 MG TABLET PO SCH (08:00)
[2024-08-25] MEDS ORDERED: NEOSTIGMINE METHYLSULFATE 1MG/ML IV ONE (08:38)
[2024-08-25] MEDS ORDERED: GLYCOPYRROLATE 0.2 MG/ML 5 ML VIAL ONE (08:38)
[2024-08-25] MEDS ORDERED: phenylEPHRINE HCL 10 MG/ML 1ML VIAL IV ONE (08:43)
[2024-08-25] MEDS: PANTOPrazole 40 MG TAB DR PO SCH (09:00)
[2024-08-25] MEDS: EMPAGLIFLOZIN 10MG TABLET PO SCH (09:00)
[2024-08-25] MEDS: GABApentin 100 MG CAPSULE PO SCH (09:00)
[2024-08-25] MEDS: polyETHYLene GLYCol 3350 17 GM POWD.PACK PO SCH (09:00)
[2024-08-25] MEDS: doCUSate SODIUM 100 MG CAP PO SCH (09:00)
--- NOTE | 2024-08-25 09:09 | OP ---
Operative Note: DATE OF PROCEDURE: 08/25/24 SURGEON: FLORENTIN ALEX MD FURNACE PUNCHER: Kwame Canales and Merary Parker ANESTHESIA: General and fascia iliaca block ANESTHESIOLOGIST/TOOL DESIGN ENGINEER: Nadia Kitchen PREOPERATIVE DIAGNOSIS: Right hip osteoarthritis POSTOPERATIVE DIAGNOSIS: Right hip osteoarthritis PROCEDURE: Right total hip arthroplasty ESTIMATED BLOOD LOSS: 200 cc INDICATIONS: 68-year-old male with right hip osteoarthritis failing conservative management. After discussion of the risks, benefits, and alternatives, the patient voluntarily agreed to undergo the aforementioned procedure. IMPLANTS: [employer]hew R3 54 mm shell with 6.5 mm screws x2 and central hole cover, 0 degree XL PE liner, anthology standard offset size seven stem with the 36 mm Oxinium +0 head DESCRIPTION OF PROCEDURE: Patient was properly identified in the preoperative holding area. Surgical site marking was verified and surgery consent reviewed. The patient was then taken to the operating room and placed in supine position on the OR table. After induction of general anesthesia, preoperative antibiotics were given. The patient was then transitioned in the lateral decubitus position with the right side up. All bony prominences were well-padded. Right lower extremity was then prepped and draped in the usual sterile fashion. Surgical time out was done verifying correct surgery, side, site, and location to be performed. We then began the procedure by making approximately 15 cm long incision centered over the greater trochanter. Here we came sharply through skin down to the fascia. Hemostasis was then achieved using Bovie electrocautery. We then incised fascia in line with the skin incision and finger split the tensor muscle proximally. We then placed our Charnley retractor. At this point we identified the vastus ridge and began elevating the full-thickness soft tissue flap off of the vastus ridge, splitting the vastus lateralis and gluteus muscles as necessary. We then proceeded to externally rotate the femur while making this flap. We resected part of the anterior capsule. The femoral head and neck was then delivered into view. We then dislocated the hip and performed our femoral neck osteotomy approximately half fingerbreadth proximal lesser trochanter. We then placed our retractors around the superior and anterior portion of the acetabulum and began to remove the labrum circumferentially. We then began reaming the acetabulum where we reamed up to a size 53 ensuring appropriate ante version and abduction. We then proceeded to trial with the size 54 acetabular component and this appeared to sit well. We opened our size 54 acetabular component and after irrigating out the wound malleted this into place. It appeared to have good press-fit however we elected to place two of the 6.5 mm screws as well. We drilled and filled the screws in standard fashion in the posterior superior portion of the cup. We then placed the manhole cover on the center of the cup. The wound was thoroughly irrigated out further and we placed the acetabular liner and impacted this in place in standard fashion. We then proceeded to reposition our retractors to elevate the proximal femur out of the wound. We then used the box chisel and canal finder to began preparing the femoral side and sequentially broached up to the aforementioned size stem. Once we felt we had good fit, fill, and control of the femur with the stem in place we then used our trial head component and reduce the hip. Upon reduction, we had appropriate soft tissue tensioning, limb length and stable range of motion. We therefore dislocated the hip once more removed our trial components thoroughly irrigated the out the wound and placed our final components in standard fashion. The hip was then reduced with the final components in place. It was found to be stable through range of motion with appropriate soft tissue tensioning and appropriate limb length. At this point we placed a bump under the knee and the foot on the male with a stack of towels to allow for internal rotation. We repaired the abductors back to the greater trochanter using #5 Ethibond. We then repaired the rent in the vastus lateralis and gluteus muscles using #1 Vicryl in a running fashion. We removed our Charnley retractor and began to repair the IT band using #1 Vicryl in interrupted [id number] fashion. At this point we began to close her s ubcutaneous tissue using 2-0 Vicryl. Running 3-0 Monocryl in subcuticular fashion with Dermabond placed over this for the skin. [place] barrier dressing was then applied. Patient was returned to supine position with abduction pillow placed, awakened from anesthesia, and taken to the recovery room in stable condition. FLORENTIN ALEX MD Aug 25, 2024 09:09
[2024-08-25] MEDS: MEPERIDINE-PF 50 MG/ML SYG ONE (09:27)
--- NOTE | 2024-08-25 10:30 | NUR ---
arrived to unit from pacu called RT for incentive spirometer alert and oriented x4, 2L oxygen via nasal cannula, family at bedside, vitals stable
[2024-08-25] MEDS: HYDROcodone/APAP 5/325 1 TAB TABLET PO PRN (13:22)
--- NOTE | 2024-08-25 14:45 | NUR ---
ORTHO COORDINATOR: TEACHING REGARDING DVT AND PNEUMONIA PREVENTION, PAIN EXPECTATIONS, PAIN MANAGEMENT PATIENT UP TO CHAIR. INCENTIVE SPIROMETER ON BEDSIDE TRAY. PATIENT INSTRUCTED TO COMPLETE EVERY HOUR, 10 TIMES PER HOUR. RATIONALE PROVIDED. B SCD SLEEVES IN ROOM. SCD MACHINE IN ROOM. PATIENT RETURN DEMONSTRATED PROPER FOOT FLEXION/EXTENSION TECHNIQUE. REVIEWED NUMERIC PAIN SCALE. INSTRUCTED PATIENT PAIN MEDICATIONS MUST BE REQUESTED. REVIEWED MEDICATIONS AVAILABLE FOR PAIN LEVEL 1-10. PATIENT VERBALIZED UNDERSTANDING. PATIENT VERBALIZES HE DOES NOT LIKE TO TAKE PAIN MEDICATION, REVIEWED PATIENT STILL HAD ANESTHESIA BLOCK, WHICH WILL BE WEARING OFF. PATIENT VERBALIZED UNDERSTANDING. NO ADDITIONAL QUESTIONS OR CONCERNS AT THIS TIME. ICE PACK PLACED TO OPERATIVE SITE.
--- NOTE | 2024-08-25 16:00 | HMCIMG ---
HIP BILAT 2VW HISTORY: Post hip surgery COMPARISON: None TECHNIQUE: 2 images of bilateral hips were obtained. FINDINGS: Total right hip arthroplasty changes are seen. Alignment appears to be grossly adequate. Left hip joint space narrowing is seen. There is no acute displaced fracture or dislocation. Degenerative changes are seen. IMPRESSION: 1. Findings as described above.
--- NOTE | 2024-08-25 16:51 | HMCIMG ---
HIP UNILAT 4VW RIGHT REASON: ORIF RIGHT HEATHER, SX. COMPARISON: None TECHNIQUE: Fluoroscopic images were obtained. FINDINGS: Please see procedure report by referring physician. IMPRESSION: Intraoperative films.
[2024-08-25] MEDS: tamSULOsin HCL 0.4 MG CAP.ER.24H PO SCH (16:56)
[2024-08-25] MEDS: ceFAZolin SODIUM 2 GM VIAL IVP SCH (16:57)
[2024-08-25] MEDS: traMADol HCL 50 MG TABLET PO PRN (18:02)
[2024-08-25] MEDS: CYCLOBENZAPRINE HCL 10 MG TABLET PO PRN (18:02)
[2024-08-25] MEDS: atorVAStatin 40 MG TABLET PO SCH (20:11)
--- NOTE | 2024-08-25 20:17 | NUR ---
REFUSED INSULIN REG PATIENT REFUSED INSULIN INJECTION WITH GLUCOSE POC OF 304. PATIENT STATES HE DOESN'T TAKE INSULIN AT HOME SO HE REFU
[2024-08-26] VITALS: BP 145/79; PULSE 85; RESP 20; TEMP 98.9
[2024-08-26 03:38] LABS: HEMATOCRIT 41.7 % (42-54); MEAN CORPUSCULAR HEMOGLOBIN 31.4 pg (27.0-33.0); MEAN CORPUSCULAR VOLUME 89.7 fL (79-99); RED BLOOD CELL COUNT(AUTO) 4.65 MIL/uL (4.50-6.20); RED CELL DISTRIBUTION WIDTH 12.8 % (11.0-15.5); WHITE BLOOD COUNT (AUTO) 11.8 K/uL (4.8-10.8)
[2024-08-26 03:47] LABS: POTASSIUM 4.4 mmol/L (3.5-5.1)
[2024-08-26 03:53] VITALS: BP 131/72; PULSE 76; RESP 19; TEMP 98.7
[2024-08-26 08:00] VITALS: BP 119/74; PULSE 81; RESP 16; TEMP 98.3; O2SAT 98
[2024-08-26] MEDS: ASPIRIN 325MG TAB PO SCH (08:01)
--- NOTE | 2024-08-26 08:42 | PN ---
Ortho postop day one. This morning patient is awake alert and oriented. He is seated in chair reporting acceptable pain control. Vital signs have been stable. Afebrile. Voiding on his own. Laboratory results reviewed. Performing incentive spirometry encouraged to do this hourly. Dressing is intact and he does have ice present to operative site. SCD stockings are present but are not on. The gastrocnemius a soft nontender. Negative Homans. Yesterday he ambulated with physical therapy about 10 ft and is pending further physical therapy this morning. Operative findings discussed with the patient. Assessment: Status post right total hip arthroplasty. Plan: Continue with Dr. Phelps's total hip arthroplasty protocol and discharge planning Vitals/Labs Vital Signs Date Time Temp Pulse Resp B/P (MAP) Pulse Ox O2 Delivery O2 Flow Rate FiO2 08/26/24 08:00 98.2 81 16 119/74 98 Room Air 0.0 08/25/24 20:00 21 Laboratory Tests 08/26/24 03:07 Medications Current Medications Cefazolin Sodium 2 gm STK-MED ONCE .ROUTE; Start 08/25/24 at 06:13; Stop 08/25/24 at 06:13; Status DC Sodium Chloride 1,000 ml @ As Directed STK-MED ONCE IV Last administered on 08/25/24at 06:48; Start 08/25/24 at 06:13; Stop 08/25/24 at 06:13; Status DC Acetaminophen 100 ml @ As Directed STK-MED ONCE .ROUTE; Start 08/25/24 at 06:37; Stop 08/25/24 at 06:37; Status DC Famotidine 20 mg STK-MED ONCE IV; Start 08/25/24 at 06:37; Stop 08/25/24 at 06:37; Status DC Ropivacaine 150 mg STK-MED ONCE .ROUTE; Start 08/25/24 at 06:38; Stop 08/25/24 at 06:38; Status DC Ketamine HCl 50 mg STK-MED ONCE .ROUTE; Start 08/25/24 at 06:38; Stop 08/25/24 at 06:39; Status DC Lidocaine HCl 100 mg STK-MED ONCE .ROUTE; Start 08/25/24 at 06:43; Stop 08/25/24 at 06:43; Status DC Propofol 200 mg STK-MED ONCE IV; Start 08/25/24 at 06:44; Stop 08/25/24 at 06:44; Status DC Rocuronium [place] 50 mg STK-MED ONCE .ROUTE; Start 08/25/24 at 06:44; Stop 08/25/24 at 06:44; Status DC Fentanyl Citrate 100 mcg STK-MED ONCE .ROUTE; Start 08/25/24 at 06:44; Stop 08/25/24 at 06:45; Status DC Tranexamic Acid 1,000 mg STK-MED ONCE .ROUTE; Start 08/25/24 at 06:51; Stop 08/25/24 at 06:51; Status DC Sodium Chloride 1,000 ml @ 100 mls/hr Q10H IV Last administered on 08/25/24at 16:58; Start 08/25/24 at 07:30; Stop 08/26/24 at 07:29; Status DC Polyethylene Glycol 17 gm DAILY PO Last administered on 08/26/24at 08:01; Start 08/25/24 at 09:00; Stop 09/24/24 at 08:59 Bisacodyl 10 mg DAILY PRN RC; Start 08/28/24 at 07:30; Stop 09/27/24 at 07:29 Aspirin 325 mg BID PO Last administered on 08/26/24at 08:01; Start 08/26/24 at 09:00; Stop 09/25/24 at 08:59 Ketorolac Tromethamine 15 mg Q6H PRN IV; Start 08/26/24 at 07:30; Stop 08/31/24 at 07:29 Ferrous Fumarate 324 mg DAILY PRN PO; Start 08/25/24 at 07:30; Stop 09/24/24 at 07:29 Calcium Carbonate 500 mg Q12H PRN PO; Start 08/25/24 at 07:30; Stop 09/24/24 at 07:29 Insulin Human Regular INSULIN SLIDING SCAL... ACHS SQ; Start 08/25/24 at 07:30; Stop 09/24/24 at 07:29 Ondansetron HCl 4 mg Q6H PRN IVP; Start 08/25/24 at 07:30; Stop 09/24/24 at 07:29 Cefazolin Sodium 2 gm Q8H IVP Last administered on 08/25/24at 20:10; Start 08/25/24 at 12:30; Stop 08/25/24 at 20:31; Status DC Gabapentin 100 mg TID PO Last administered on 08/26/24at 08:03; Start 08/25/24 at 09:00; Stop 09/24/24 at 08:59 Cyclobenzaprine HCl 5 mg Q8H PRN PO Last administered on 08/25/24at 18:02; Start 08/25/24 at 07:30; Stop 09/24/24 at 07:29 Docusate Sodium 100 mg BID PO Last administered on 08/26/24at 08:01; Start 08/25/24 at 09:00; Stop 09/24/24 at 08:59 Ketorolac Tromethamine 15 mg Q8H IV; Start 08/25/24 at 07:30; Stop 08/25/24 at 07:29; Status DC Potassium Chloride 100 ml @ 100 mls/hr AD PRN IV; Start 08/25/24 at 07:30; Stop 09/24/24 at 07:29 Potassium Chloride 20 meq AD PRN PO; Start 08/25/24 at 07:30; Stop 09/24/24 at 07:29 Potassium Chloride 20 meq AD PRN PO; Start 08/25/24 at 07:30; Stop 09/24/24 at 07:29 Tramadol HCl 50 mg Q6H PRN PO Last administered on 08/25/24at 18:02; Start 08/25/24 at 07:30; Stop 08/30/24 at 07:29 Acetaminophen/ Hydrocodone Bitart Q4H PRN PO; Start 08/25/24 at 07:30; Stop 08/25/24 at 07:35; Status DC Empaglifozin 10 mg DAILY PO Last administered on 08/26/24at 08:01; Start 08/25/24 at 09:00; Stop 09/24/24 at 08:59 Tamsulosin HCl 0.4 mg DAILYDINNER PO Last administered on 08/25/24at 16:56; Start 08/25/24 at 17:00; Stop 09/24/24 at 16:59 Metformin HCl 1,000 mg BIDMEALS PO Last administered on 08/26/24at 08:01; Start 08/25/24 at 08:00; Stop 09/24/24 at 07:59 Pantoprazole Sodium 40 mg DAILY PO Last administered on 08/26/24at 08:01; Start 08/25/24 at 09:00; Stop 09/24/24 at 08:59 Atorvastatin Calcium 80 mg HS PO Last administered on 08/25/24at 20:11; Start 08/25/24 at 21:00; Stop 09/24/24 at 20:59 Home Med [Trulicity] 3 MG QSA SQ; Start 08/30/24 at 09:00; Stop 09/29/24 at 08:59 Ondansetron HCl 4 mg STK-MED ONCE .ROUTE; Start 08/25/24 at 07:24; Stop 08/25/24 at 07:24; Status DC Dexamethasone Sodium Phosphate 10 mg STK-MED ONCE .ROUTE; Start 08/25/24 at 07:24; Stop 08/25/24 at 07:24; Status DC Acetaminophen/ Hydrocodone Bitart 1 tab Q6H PRN PO; Start 08/25/24 at 08:00; Stop 08/30/24 at 07:59 Acetaminophen/ Hydrocodone Bitart 2 tab Q6H PRN PO Last administered on 08/26/24at 08:02; Start 08/25/24 at 08:00; Stop 08/30/24 at 07:59 Cefazolin Sodium 2 gm STK-MED ONCE IVPB Last administered on 08/25/24at 07:30; Start 08/25/24 at 07:30; Stop 08/25/24 at 07:50; Status DC Tranexamic Acid 2,000 mg STK-MED ONCE IV Last administered on 08/25/24at 07:40; Start 08/25/24 at 07:40; Stop 08/25/24 at 07:50; Status DC Glycopyrrolate 1 mg STK-MED ONCE .ROUTE; Start 08/25/24 at 08:38; Stop 08/25/24 at 08:39; Status DC Neostigmine Methylsulfate 10 mg STK-MED ONCE IV; Start 08/25/24 at 08:38; Stop 08/25/24 at 08:39; Status DC Phenylephrine HCl 10 mg STK-MED ONCE IV; Start 08/25/24 at 08:43; Stop 08/25/24 at 08:43; Status DC Meperidine HCl 50 mg STK-MED ONCE .ROUTE Last administered on 08/25/24at 09:27; Start 08/25/24 at 09:23; Stop 08/25/24 at 09:23; Status DC SHANE OBRIEN NP Aug 26, 2024 08:42
--- NOTE | 2024-08-26 11:40 | NUR ---
[facility] CM MET WITH PT THIS MORNING, ASSESSMENT DONE. PATIENT IS INDEPENDENT PRIOR TO SURGERY, LIVES AT HOME WITH HIS . PT HAS OWN GLUCOMETER. DENIES ANY OTHER EQUIPMENT/SERVICES. FEELS SAFE TO GO BACK HOME, STILL WORK AND DRIVE, ABLE TO ASSIST WITH TRANSPORTATION AND NEEDS NECESSARY. DISCUSSED HOME W/HH VS SHORT TERM REHAB. PT VERBALIZED HE WOULD LIKE TO GO TO [facility] INPATIENT RE[facility] UN[facility] D/T TO HIS INSURANCE COVERAGE. CONSENT SIGNED K[facility] FOR [facility]. [facility] IRU ONCE APPROVED. CM TO CONTINUE TO FOLLOW UP. Addendum: 08/26/24 at 1844 by JASON KENNEDY LVN Amended: Links added.
[2024-08-26 11:56] VITALS: BP 101/68; PULSE 79; RESP 16; TEMP 98.2
[2024-08-26 16:00] VITALS: BP 122/62; PULSE 80; RESP 16; TEMP 98.4
--- NOTE | 2024-08-26 17:15 | NUR ---
ORTHO COORDINATOR: REINFORCED TEACHING. PATIENT IN BED. REPORTS PAIN CONTROLLED. PATIENT ASSISTED TO BATHROOM. UTILIZED GAIT BELT AND WALKER. PATIENT RETURNED TO BED. FRESH ICE PACKS TO HIP. B SCD SLEEVES ATTACHED AND FUNCTIONING. DISCUSSED BLOOD SUGAR. IN REVIEWING DIET, PATIENT IS ON CONSISTENT CARB DIET AND STATES HE IS CONTROLLED WELL AT HOME WITH DIET AND ORAL MEDICATION. WILL DISCUSS WITH PRIMARY RN.
[2024-08-26 20:00] VITALS: BP 121/72; PULSE 93; RESP 18; TEMP 98.5; O2SAT 98
[2024-08-27] VITALS: BP 133/82; PULSE 100; RESP 18; TEMP 99
[2024-08-27 04:00] VITALS: BP 119/66; PULSE 94; RESP 18; TEMP 98.6
[2024-08-27 08:00] VITALS: BP 114/73; PULSE 104; RESP 16; TEMP 98.2; O2SAT 98
[2024-08-27 12:00] VITALS: BP 114/67; PULSE 89; RESP 16; TEMP 98.2
[2024-08-27] MEDS: ketOROlac 15MG/ML VIAL (15MG/ML) IV PRN (12:30)
--- NOTE | 2024-08-27 15:45 | NUR ---
ORTHO COORDINATOR: REINFORCED TEACHING. PATIENT UP TO CHAIR, AT BEDSIDE. PATIENT REPORTS PAIN IS CONTROLLED, EXPERIENCING STIFFNESS AND SORENESS. ENCOURAGED PATIENT TO CONTINUE WITH INCENTIVE SPIROMETRY, FOOT FLEXION AND EXTENSION EXERCISES AND PREMEDICATION PRIOR TO PHYSICAL THERAPY WHILE IN INPATIENT REHAB. PATIENT STATES HAS RECEIVED PHONE CALL FROM FACILITY AND ARRANGEMENTS BEING MADE. NO ADDITIONAL QUESTIONS/CONCERNS AT THIS TIME.
[2024-08-27 16:00] VITALS: BP 140/73; PULSE 87; RESP 17; TEMP 98.2
--- NOTE | 2024-08-27 18:18 | NUR ---
Discharge Patient been discharge to [facility] inpatient rehab unit, report called in to Mary Mendez, all questions answered, discharge instructions given to patient, no concerns at this time.
--- NOTE | 2024-08-27 18:38 | NUR ---
[facility] here to transport patient
[2024-08-28] MEDS ORDERED: BisaCODYL 10 MG SUPP.RECT RC PRN (07:30)
[2024-08-30] MEDS ORDERED: TRULICITY 3 MG SQ SCH (09:00)
== END 2024-08-27 18:45 | DRG 470 ==
LOC: DAH 05:43 → DAHIP 05:44 → OBSVTOIN 05:44 → DAHIP 10:30 → 4AH 10:31
PROVIDERS: ADMIT Student in an Organized Health Care Education/Training Program; ATTEND Student in an Organized Health Care Education/Training Program
PROC: 0SR906A Replacement of Right Hip Joint with Oxidized Zirconium on Polyethylene Synthetic Substitute, Uncemented, Open Approach (ICD-10-PCS; principal; 2024-08-25 07:08)
DX: M16.11 Unilateral primary osteoarthritis, right hip (principal); D62 Acute posthemorrhagic anemia
CPT/HCPCS: 36415; 73503; 73521; 80048; 82948; 84134; 85027; 86140; 87641; C1776; G0378; J1100; J1815; J1885; J2003; J2175; J2371; J2405; J2704; J2710; J2795; J3010; J3490; J7030; A4215; A4221; A4222; A4223; A4649; A4663; A4930; A5120; A6255; J0690

== ENCOUNTER 2024-09-09 11:19 | Inpatient (IN) | payer OTHER, MEDICARE ==
[~2024-09-09] VITALS: Ht 170.2 cm; Wt 65.9 kg
[2024-09-09] MEDS ORDERED: cefTRIAXone 1G VIAL 1 GM in 0.9%NACL 50ML 50 ML IV ONE (12:00)
--- NOTE | 2024-09-09 12:05 | EKG ---
[facility] Test Date: 2024-09-09 Test Time: 12:02:52 Pat Name: JOÃO NGUYEN Department: [facility] Room: 302 Gender: M Corrections Identification Technician: [id number] : [id number] Requested By: LOVE DE LA CRUZ Order Number: [id number] Reading MD: Tavo Mercado Measurements Intervals Lysite Rate: 90 P: 26 NH: 128 QRS: -19 QRSD: 73 T: 57 QT: 348 QTc: 427 Interpretive Statements Sinus rhythm Inferior infarct, old Compared to ECG 11/19/2023 15:46:24 Myocardial infarct finding now present Electronically Signed On 09-09-2024 23:37:08 CDT by Tavo Mercado Please click the below link to view image of tracing.
[2024-09-09 12:21] LABS: BASOPHILS # (AUTO) 0.06 K/uL (0.00-0.20); BASOPHILS % (AUTO) 0.3 % (0.0-5.0); EOSINOPHILS # (AUTO) 0.01 K/uL (0.00-0.70); HEMATOCRIT 42.9 % (42-54); LYMPHOCYTES % (AUTO) 10.1 % (21.0-51.0); MEAN CORPUSCULAR HEMOGLOBIN 30.6 pg (27.0-33.0); MEAN CORPUSCULAR HGB CONC 33.1 g/dL (32.0-36.0); MEAN CORPUSCULAR VOLUME 92.5 fL (79-99); MONOCYTES # (AUTO) 1.2 K/uL (0.1-1.0); NEUTROPHILS # (AUTO) 16.7 K/uL (1.8-7.7); NEUTROPHILS % (AUTO) 82.6 % (40.0-77.0); RED BLOOD CELL COUNT(AUTO) 4.64 MIL/uL (4.50-6.20); RED CELL DISTRIBUTION WIDTH 13.2 % (11.0-15.5); WHITE BLOOD COUNT (AUTO) 20.2 K/uL (4.8-10.8)
[2024-09-09 12:27] LABS: PLATELET COUNT (AUTO) 722 K/uL (130-400)
[2024-09-09 12:30] LABS: INR 1.12 (0.85-1.15); PROTHROMBIN TIME 11.7 SEC (9.6-11.6)
--- NOTE | 2024-09-09 12:34 | HMCIMG ---
Exam Type: CT ABDOMEN/PELVIS W/O CONTRAST Clinical Information: GI bleed, recent R hip replacement Comparison: None CT Dose Index (CTDI): 10.20 mGy Dose Length Product (DLP): 530.00 total mGy-cm PROTOCOL: Routine noncontrast helical scanning of the abdomen and pelvis was performed at 5mm collimation. Findings: No evidence of nephro or ureterolithiasis is found. No hydronephrosis or ureteral dilatation is seen. The lung bases are clear. The stomach is unremarkable. It shows no wall thickening. No gross ulceration is seen. It is not overly distended. There are no surrounding inflammatory changes. No wall lesions are identified to suggest cancer. The spleen is unremarkable. It is not enlarged. The pancreas shows normal anatomy. It is not fatty replaced. It shows no lesions. The pancreatic duct is not dilated. The gallbladder is unremarkable. It shows no cholelithiasis. The gallbladder wall is normal in thickness. There is no pericholecystic fluid. The is no acute or chronic inflammation noted. The adrenal glands are unremarkable. There is no enlargement. No lesions are noted. The liver is unremarkable. It shows no focal masses. The appendix is unremarkable. It shows no evidence of inflammation. No appendicolith is seen. The small bowel is unremarkable. There is no evidence of dilatation to suggest obstruction. No evidence of adynamic ileus is seen. There is no small bowel wall thickening to suggest enteritis. The colon is unremarkable. The urinary bladder is unremarkable. There is no wall thickening to suggest tumor or inflammation. There are no intraluminal calculi. There are no diverticula. There is no evidence of chronic bladder outlet obstruction. There is no evidence of urinary bladder distention to suggest urinary retention. The other pelvic structures are unremarkable. There is status post right hip replacement without obvious complications. IMPRESSION: NEGATIVE CT SCAN OF THE ABDOMEN AND PELVIS. NO RENAL STONES. NO ACUTE PATHOLOGY OR INFLAMMATION SEEN. This study was performed using dose reduction techniques to include automated exposure control and/or adjustment of the mA and/or kV according to patient size.
[2024-09-09 12:35] LABS: CREATININE 1.8 mg/dL (0.5-1.3); POTASSIUM 4.4 mmol/L (3.5-5.1)
[2024-09-09] MEDS: PANTOPrazole 40 MG/VIAL IVP ONE (12:39)
[2024-09-09] MEDS: cefTRIAXone 1G VIAL IVPB ONE (12:39)
[2024-09-09] MEDS: morPHINE 4 MG SYG IVP ONE (12:39)
[2024-09-09] MEDS: ondanSETRON 4MG INJ IVP ONE (12:39)
[2024-09-09] MEDS: LACTATED RINGERS 1000ML 1,000 ML IV ONE (12:39)
--- NOTE | 2024-09-09 13:02 | HMCIMG ---
Exam Type: CHEST 1VW Clinical Information: sepsis Comparison: None Findings: The lungs are clear of infiltrates. The heart is normal in size. The bony and soft tissue structures of the chest are unremarkable. Impression: Clear lungs.
[2024-09-09] MEDS: ZOSYN 3.375GM +NS 50ML IV ONE (13:17)
[2024-09-09] MEDS: LACTATED RINGERS 1000ML 1,500 ML IV ONE (13:18)
--- NOTE | 2024-09-09 13:19 | ERN ---
General Chief Complaint: Hypotension Stated Complaint: HYPOTENSION Time Seen by MD: 11:27 History of Present Illness Initial Comments 68-year-old male presents for weakness, dyspnea, GI bleed, low blood pressure. On 08/25/2024 patient had a right total hip arthroplasty by Dr. Alexandria Phelps. He was on Eliquis afterwards. He reports that his right hip is improving, but over the last few days he has felt dyspnea on exertion and felt generally very weak. He went to visit Dr. Phelps this morning was found to have a low blood pressure and high heart rate, prompting a visit to the emergency department. Patient reports that he has had some bright red blood in the stools recently. He denies any abdominal pain. Denies any chest pain. Denies any vomiting. Denies any rectal pain. Allergies: Coded Allergies: No Known Drug Allergies (Unverified Allergy, Unknown, 03/21/23) Home Meds Active Scripts Aspirin (ASPIRIN 81 MG ECTAB) 81 Mg Ectab, 81 MG PO DAILY, #90 TAB.EC Prov:MELANIE DENNIS MD 11/20/23 Tamsulosin HCl (Flomax) 0.4 Mg Cap.er.24h, 0.4 MG PO DAILYDINNER, #90 CAPSULE. Prov:MELANIE DENNIS MD 11/19/23 Omeprazole (Omeprazole) 40 Mg Capsule.dr, 40 MG PO AM, #90 CAP Prov:MELANIE DENNIS MD 11/19/23 Reported Medications [Testosterone] No Conflict Check, INJ Q2WK 08/20/24 Rosuvastatin Calcium (Rosuvastatin Calcium) 40 Mg Tablet, 40 MG PO HS, TAB 08/20/24 Metformin HCl (Metformin HCl) 1,000 Mg Tablet, 1000 MG PO BID, TAB 08/20/24 [Trulicity] No Conflict Check, 3 MG SQ SAT 08/20/24 Empagliflozin (Jardiance) 10 Mg Tablet, 10 MG PO DAILY, TAB 06/19/23 Past Medical History Past Medical History: Diabetes-Type II, High Cholesterol, Hypertension Past Surgical History: Tonsillectomy Surgical History Other: TOTAL RT HIP REPLACEMENT Family History Family History: Negative Social History Social History: Negative, Lives with family ROS Dictation CONSTITUTIONAL: Generalized weakness fatigue HEAD/FACE: No signs of trauma. EENT: No eye pain, no blurred vision, no tearing, no double vision, no ear pain, no ear discharge, no nose pain, no nasal congestion, no throat pain, no throat swelling, no mouth pain. RESPIRATORY: Denies cough or congestion. Denies shortness of breath. CARDIOVASCULAR: No chest pain, no edema, no palpitations, no syncope. GASTROINTESTINAL/ABDOMINAL: No abdominal pain, no constipation, no diarrhea, no nausea, no vomiting. GENITOURINARY: No abnormal discharge, no dysuria, no frequent urination, no hematuria. No complaints of pain in the genitals. MUSCULOSKELETAL: No back pain, no gout, no joint pain, no joint swelling, no muscle pain, no muscle stiffness, no neck pain. INTEGUMENTARY: No change in color, no change in hair/nails, no dryness, no lesion, no lumps, no rash. NEUROLOGICAL/PSYCH: No anxiety, not depressed, no emotional problem, no headache, no numbness, no pre-existing deficit, no history of seizures, no tremors, no weakness. HEMATOLOGIC/LYMPHATIC: Not anemic, no history of blood clots, no apparent bleeding, no bruising, glands not swollen. All Systems Negative, Except as Noted. Physical Exam Physical Exam Dictation VITAL SIGNS: Reviewed. GENERAL APPEARANCE: Alert, oriented x3, no acute distress HEAD AND FACE: Non-traumatic. EYES: PERRL, pink conjunctivas, eyelid no trauma, anterior chamber clear. EARS: Pinnas intact and no signs of trauma or erythema. Ear canals clear and no discharge. TMs no erythema. NOSE: No discharge, no bleeding. OROPHARYNX: Mouth normal, teeth no caries, tongue pink. Pharynx clear, no erythema. Tonsils no exudates, no abscesses noted. Mucous membrane moist. NECK: Supple, non-tender, no thyromegaly, no masses, no JVD, no bruits. BREAST: Deferred. CHEST: No tenderness, no crepitus, no paradoxical movement, no retractions. LUNGS: Clear, well-ventilated, symmetric, no rales, no wheezing, no rhonchi, no stridor, good breath sounds bilaterally. HEART: Regular rate, regular rhythm, no murmur, no gallops. VASCULAR: No peripheral edema. ABDOMEN: Soft, positive bowel sounds, nondistended, no guarding, nontender, no rebound, no masses no hepatomegaly, no splenomegaly, no Perez's sign, no hernias. RECTAL: Deferred. GENITAL: Deferred. NEUROLOGICAL: Normal speech, gross motor function intact, gross sensory function intact. MUSCULOSKELETAL: Neck nontender, full range of motion, back nontender, full range of motion. EXTREMITIES: Nontender, full range of motion. SKIN: Color pink, dry, no turgor, no rash, no lacerations, no abrasions, no contusions. LYMPHATICS: Deferred. Results Laboratory and Microbiology Lab and Micro Result Laboratory Tests Test 09/09/24 12:03 White Blood Count 20.2 K/uL (4.8-10.8) H Red Blood Count 4.64 MIL/uL (4.50-6.20) Hemoglobin 14.2 g/dL (14.0-18.0) Hematocrit 42.9 % (42-54) Mean Corpuscular Volume 92.5 fL (79-99) Mean Corpuscular Hemoglobin 30.6 pg (27.0-33.0) Mean Corpuscular Hemoglobin Concent 33.1 g/dL (32.0-36.0) Red Cell Distribution Width 13.2 % (11.0-15.5) Platelet Count 722 K/uL (130-400) H Mean Platelet Volume 10.1 fL (7.5-10.5) Immature Granulocyte % (Auto) 1.0 % (0-1) Neutrophils (%) (Auto) 82.6 % (40.0-77.0) H Lymphocytes (%) (Auto) 10.1 % (21.0-51.0) L Monocytes (%) (Auto) 6.0 % (3.0-13.0) Eosinophils (%) (Auto) 0.0 % (0.0-8.0) Basophils (%) (Auto) 0.3 % (0.0-5.0) Neutrophils # (Auto) 16.7 K/uL (1.8-7.7) H Lymphocytes # (Auto) 2.0 K/uL (1.0-4.8) Monocytes # (Auto) 1.2 K/uL (0.1-1.0) H Eosinophils # (Auto) 0.01 K/uL (0.00-0.70) Basophils # (Auto) 0.06 K/uL (0.00-0.20) Absolute Immature Granulocyte (auto 0.20 K/uL (0-1) Nucleated Red Blood Cells 0.0 % (0.0-0.19) Platelet Morphology Comment See comments Prothrombin Time 11.7 SEC (9.6-11.6) H Prothromb Time International Ratio 1.12 (0.85-1.15) Activated Partial Thromboplast Time 31.0 SEC (26.3-35.5) Sodium Level 136 mmol/L (136-145) Potassium Level 4.4 mmol/L (3.5-5.1) Chloride Level 95 mmol/L (101-111) L Carbon Dioxide Level 23 mmol/L (21-32) Blood Urea Nitrogen 22 mg/dL (7-18) H Creatinine 1.8 mg/dL (0.5-1.3) H Glomerular Filtration Rate Calc 41 mL/min (>90) Random Glucose 233 mg/dL (70-105) H Lactic Acid Level 3.6 mmol/L (0.8-2.5) H Total Calcium 9.7 mg/dL (8.5-10.1) Troponin I High Sensitivity 13 ng/L (4-75) MDM CC: Dizziness, weakness, dyspnea, low blood pressure, bright red blood per rectum Historian: Patient Comorbidities: Type 2 diabetes, HTN, DLD recent right total hip replacement Limitations by social determinants of health: None Differential diagnosis: Hypovolemic shock, dehydration, lower GI bleed, upper GI bleed, sepsis, other. vital signs: Initial blood pressure 98/61, heart rate of 117, otherwise vital signs stable. Likely GI bleed, concern for anemia. Two large bore IVs established. patient may also be septic. EKG: Sinus rhythm, rate of 90, left axis deviation, good R-wave progression, intervals are stable no STEMI. Independently interpreted by me. Labs (independently ordered and interpreted by me ): White count 20 K, left shift 80% neutrophils. No bands. Hemoglobin stable 14.2. Coags stable. Chemistry panel shows a OLLIE creatinine 1.8. Glucose 233. Lactic acid 3.6. Troponin stable. CXR (independently interpreted by me ): No focal infiltrates or abnormalities CT abdomen and pelvis without contrast (independently interpreted by me ): No free air, no surgical pathology, no obvious. Status post right hip replacement without any obvious complications. Treatment in ED: 1 L lactated Ringer's, 4 mg IV morphine, 4 mg Zofran, 1 g of Rocephin IV, Vancomycin, Zosyn IV, 80 mg Protonix IV. Consultation: Dr. Dennis for admission Re-evaluation. On sepsis focused re-evaluation after 30 cc/kg of crystalloid and antibiotics, patient was stable perfusion, cap refill less than 2 seconds, stable vital signs. ED Course Orders Procedure Category Date Status Time Cbc With Differential LAB 09/09/24 Complete 11:27 Prothrombin Time With LAB 09/09/24 Complete INR 11:35 Partial LAB 09/09/24 Complete Thromboplastin Time 11:35 Type And Screen BBK 09/09/24 Complete 11:35 Occult Blood Stool LAB 09/09/24 Logged Single Only 11:35 12 Lead Ekg Tracing- EKG 09/09/24 Complete Technical 11:35 Lactated Ringers PHA 09/09/24 In Process 1000ml (Lactated 12:00 Morphine 4mg Syg PHA 09/09/24 Complete (Morphine 4mg Syg) 12:00 Ondansetron 4mg Inj PHA 09/09/24 Complete (Zofran 4mg Inj) 12:00 Ceftriaxone 1g Vial PHA 09/09/24 Complete (Rocephine 1g Inj) 12:00 Pantoprazole 40mg Inj PHA 09/09/24 Complete (Protonix 40mg Inj 12:00 Basic Metabolic Panel LAB 09/09/24 Complete 11:35 Blood Cult LEONCIO 09/09/24 In Process 11:36 Lactic Acid LAB 09/09/24 Complete 11:36 Troponin I High LAB 09/09/24 Complete Sensitivity 11:36 Ct Abdomen/Pelvis W/O CT 09/09/24 Resulted Contrast 11:37 Ceftriaxone 1g Vial PHA 09/09/24 Complete (Rocephine 1g Inj) 12:30 Lactated Ringers PHA 09/09/24 Complete 1000ml (Lactated 12:30 Vancomycin 1g/250ml PHA 09/09/24 Complete Kit (Vancomycin 1g/2 12:30 Zosyn 3.375gm+Ns 50ml PHA 09/09/24 Complete (Zosyn 3.375gm+Ns 14:00 Chest 1vw RAD 09/09/24 Resulted 12:30 Urinalysis LAB 09/09/24 Logged W/Microscopic 12:30 Current Medications Medications (Trade) Dose Ordered Sig/Koko Route PRN Reason Start Time Stop Time Status Last Admin Dose Admin Ceftriaxone Sodium 1 gm/ Sodium Chloride 50 ml @ 100 mls/hr ONCE ONCE IV 09/09/24 12:00 09/09/24 12:09 DC Ceftriaxone Sodium (ROCEphine 1G INJ) 1 gm ONCE ONCE IVPB 09/09/24 12:30 09/09/24 12:31 DC 09/09/24 12:39 Lactated Ringer's 1,000 ml @ 125 mls/hr ONCE ONCE IV 09/09/24 12:00 09/09/24 19:59 09/09/24 12:39 Lactated Ringer's 1,500 ml @ 0 mls/hr ONCE ONCE IV 09/09/24 12:30 09/09/24 12:35 DC 09/09/24 13:18 Morphine Sulfate (morPHINE 4MG SYG) 4 mg ONCE ONCE IVP 09/09/24 12:00 09/09/24 12:06 DC 09/09/24 12:39 Ondansetron HCl (zoFRAN 4MG INJ) 4 mg ONCE ONCE IVP 09/09/24 12:00 09/09/24 12:05 DC 09/09/24 12:39 Pantoprazole Sodium (PROTonix 40MG INJ) 80 mg ONCE ONCE IVP 09/09/24 12:00 09/09/24 12:05 DC 09/09/24 12:39 Piperacillin Sod/ Tazobactam Sod (Zosyn 3.375gm+NS 50ml) 3.375 gm ONCE ONCE IV 09/09/24 14:00 09/09/24 14:01 DC 09/09/24 13:17 Vancomycin HCl (Vancomycin 1g/ 250ml Kit) 1 gm ONCE ONCE IV 09/09/24 12:30 09/09/24 12:34 DC 09/09/24 13:55 Vital Signs Date Time Temp Pulse Resp B/P (MAP) Pulse Ox O2 Delivery O2 Flow Rate FiO2 09/09/24 14:00 97.7 76 16 94/55 97 Room Air* 0 21 09/09/24 12:03 93 16 101/67 98 Room Air* 0 21 09/09/24 11:24 97.7 117 20 98/61 99 Room Air DX & DISP Disposition: Inpatient Departure Impression: Primary Impression: Sepsis Additional Impressions: BRBPR (bright red blood per rectum), OLLIE (acute kidney injury), Dehydration Critical Time: 30 minutes (Critical Care Procedure NoteAuthorized and Performed by: meTotal critical care time: Approximately 36 minutesDue to a high probability of clinically significant, life threatening deterioration, the patient required my highest level of preparedness to intervene emergently and I personally spent this critical care time directly and personally managing the patient. This critical care time included obtaining a history; examining the patient; pulse oximetry; ordering and review of studies; arranging urgent treatment with development of a management plan; evaluation of patient's response to treatment; frequent reassessment; and, discussions with other providers.This critical care time was performed to assess and manage the high probability of imminent, life-threatening deterioration that could result in multi-organ failure. It was exclusive of separately billable procedures and treating other patients and teaching time.Please see MDM section and the rest of the note for further information on patient assessment and treatment.) Condition: Stable Referrals: MELANIE DENNIS MD (PCP) LOVE DE LA CRUZ DO Sep 09, 2024 13:19
[2024-09-09] MEDS: VANCOMYCIN KIT 1 GM/250 ML IV.KIT IV ONE (13:55)
[2024-09-09] MEDS ORDERED: HYDROcodone/APAP 5/325 1 TAB TABLET PO PRN ×2 (14:30→20:00)
[2024-09-09] MEDS ORDERED: TEST200V21 IM (14:48)
[2024-09-09] MEDS ORDERED: GABA-529 PO (14:48)
[2024-09-09] MEDS ORDERED: CYCL5TAB3 PO (14:48)
[2024-09-09] MEDS ORDERED: DOCU-116 PO (14:48)
[2024-09-09] MEDS ORDERED: METF-444 PO (14:48)
[2024-09-09] MEDS ORDERED: APIX2.5T PO (14:48)
[2024-09-09] MEDS ORDERED: DULA1.5P SQ (14:48)
[2024-09-09] MEDS ORDERED: HYDR-4060 PO (14:48)
[2024-09-09] MEDS ORDERED: PANT40TA54 PO (14:48)
[2024-09-09] MEDS: 0.9%NACL 1000ML 1,000 ML IV SCH (15:07)
[2024-09-09 16:15] VITALS: BP 113/66; PULSE 75; RESP 20; TEMP 97.7
[2024-09-09] MEDS: INSULIN humuLIN R 100 UNIT/ML 3ML SQ SCH ×2 (16:30→21:00)
--- NOTE | 2024-09-09 17:44 | NUR ---
Arrival to Floor Patient arrived to the unit accompanied by spouse. Transferred to his bed and is resting comfortably in no distress. Addendum: 09/09/24 at 1745 by YARELI GOODRICH RN RN Amended: Links added.
[2024-09-09 17:46] VITALS: O2SAT 98
--- NOTE | 2024-09-09 19:49 | HP ---
HISTORY AND PHYSICAL Date of Visit: Sep 09, 2024 Time of Visit: 19:49 ADMISSION DATE: Sep 09, 2024 at 14:22 CC: WEAKNESS HPI: This is a 68-year-old man presents for weakness, dyspnea, associated with low blood pressure after a recent right total hip arthroplasty done on 08/25/[address] Alexandria Phelps. He was then discharged to [facility] for rehab and recently released home. He was seen for hospital follow up once released from SNF and reported on discharge that his hip pain increased but he had not had a chance to refill his analgesics. He was also not taking his medications as directed so they were reconciled and encouraged to take correctly as well as to resume his analgesics as needed. He was also released on eliquis for DVT prophylaxis and had not started but encouraged as well. He reported that his right hip continued to increase in pain and then developed dyspnea on exertion and felt just in general weakness with a low appetite and decreased oral intake. He went to visit Dr. Phelps this morning was found to have a low blood pressure and high heart rate, prompting a visit to the emergency department. Patient reports that he has had some bright red blood in the stools recently but denies any abdominal pain, nausea, vomiting, fevers, chills, chest pain or palpitations and has not been checking his blood sugars. 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 HTN DM II UNCONTROLLED HYPERLIPIDEMIA MIXED BPH WITH OBS GERD S/P R HEATHER - 08/2024 SOCIAL HISTORY: LIVES LOCALLY NO ALCOHOL TOBACCO OR DRUG ABUSE FAMILY HISTORY: + CVD DM II HTN ^ Patient History: Cardiovascular disease MOTHER, FATHER, Hypertension MOTHER, FATHER, Allergies: Coded Allergies: No Known Drug Allergies (Unverified Allergy, Unknown, 03/21/23) Scheduled Apixaban (Eliquis), 2.5 MG PO BID Dulaglutide (Trulicity), 3 MG SQ QWEEK Empagliflozin (Jardiance), 10 MG PO DAILY, (Reported) Gabapentin (Gabapentin), 100 MG PO TID Metformin HCl (Metformin HCl), 500 MG PO BID Pantoprazole Sodium (Pantoprazole Sodium), 40 MG PO DAILY Rosuvastatin Calcium (Rosuvastatin Calcium), 40 MG PO HS, (Reported) Tamsulosin HCl (Flomax), 0.4 MG PO DAILYDINNER Testosterone Cypionate (Testosterone Cypionate), 1 ML IM [id number] Scheduled PRN Cyclobenzaprine HCl (Cyclobenzaprine HCl), 5 MG PO TIDP PRN for spasm Docusate Sodium (Colace), 100 MG PO BID PRN for CONSTIPATION Hydrocodone/Acetaminophen (Hydrocodon-Acetaminophen 5-325), 1-2 TAB PO Q6HPRN PRN for pain Discontinued Medications Aspirin (Aspirin 81 Mg Ectab), 81 MG PO DAILY Metformin HCl (Metformin HCl), 1,000 MG PO BID, (Reported) Discontinued Reason: Prescription changed Omeprazole (Omeprazole), 40 MG PO AM [Testosterone], Unknown Dose INJ Q2WK, (Reported) [Trulicity], 3 MG SQ SAT, (Reported) Review of Systems Normal Eyes:, Normal Ear/Nose/Mouth/Throat, Normal Cardiovascular:, Normal Gastrointestinal:, Normal Genitourinary:, Normal Integumentary:, Normal Neurological:, Normal Psychological:, Normal Endocrine:, Normal Hematologic/Lymphatic:, Normal Allergic/Immunologic:; Abnormal Constitutional: (GENERALIZED WEAKNESS ), Abnormal Respiratory: (SOB), Abnormal Musculoskeletal: (SEVERE RIGHT HIP PAIN) Physical Exam Vital Signs Vital Signs Date Time Temp Pulse Resp B/P (MAP) Pulse Ox O2 Delivery O2 Flow Rate FiO2 09/09/24 11:24 97.7 117 20 98/61 99 Room Air 09/09/24 12:03 0 21 Appearance: Well dev, well nourished Eyes: Clear, EOM Normal Ear/Nose/Mouth/Throat: Landmarks WNL, Abnormal (DRY MUCOUS MEMBRANES) Neck: Symmetric, trach midline, Thyroid WNL Cardiovascular: PMI WNL, Regular Rate, Regular Rhythm Respiratory: No Retractions, Lungs clear G.I.: Normal bowel sounds, No rebound tenderness Lymphatic: No lymphadenopathy neck, No lymphadenopathy axilla, No lymphaden opathy groin Musculoskeletal: Strength/Tone WNL Skin: No rash/ulcers (RIGHT HIP INSICION LOOKS CLEAN DRY AND INTACT ), No induration/nodules Neurology: Nerves I-XII intact, Sensation WNL Psychology: Insight WNL, Orientation WNL, Memory WNL, Affect WNL Diagnostics Laboratory Tests Test 09/09/24 12:03 09/09/24 17:00 09/09/24 17:37 09/09/24 19:37 Range/Units White Blood Count 20.2 4.8-10.8 K/uL Red Blood Count 4.64 4.50-6.20 MIL/uL Hemoglobin 14.2 14.0-18.0 g/dL Hematocrit 42.9 42-54 % Mean Corpuscular Volume 92.5 79-99 fL Mean Corpuscular Hemoglobin 30.6 27.0-33.0 pg Mean Corpuscular Hemoglobin Concent 33.1 32.0-36.0 g/dL Red Cell Distribution Width 13.2 11.0-15.5 % Platelet Count 722 130-400 K/uL Mean Platelet Volume 10.1 7.5-10.5 fL Immature Granulocyte % (Auto) 1.0 0-1 % Neutrophils (%) (Auto) 82.6 40.0-77.0 % Lymphocytes (%) (Auto) 10.1 21.0-51.0 % Monocytes (%) (Auto) 6.0 3.0-13.0 % Eosinophils (%) (Auto) 0.0 0.0-8.0 % Basophils (%) (Auto) 0.3 0.0-5.0 % Neutrophils # (Auto) 16.7 1.8-7.7 K/uL Lymphocytes # (Auto) 2.0 1.0-4.8 K/uL Monocytes # (Auto) 1.2 0.1-1.0 K/uL Eosinophils # (Auto) 0.01 0.00-0.70 K/uL Basophils # (Auto) 0.06 0.00-0.20 K/uL Absolute Immature Granulocyte (auto 0.20 0-1 K/uL Nucleated Red Blood Cells 0.0 0.0-0.19 % Platelet Morphology Comment See comments Prothrombin Time 11.7 9.6-11.6 SEC Prothromb Time International Ratio 1.12 0.85-1.15 Activated Partial Thromboplast Time 31.0 26.3-35.5 SEC Sodium Level 136 136-145 mmol/L Potassium Level 4.4 3.5-5.1 mmol/L Chloride Level 95 101-111 mmol/L Carbon Dioxide Level 23 21-32 mmol/L Blood Urea Nitrogen 22 7-18 mg/dL Creatinine 1.8 0.5-1.3 mg/dL Glomerular Filtration Rate Calc 41 >90 mL/min Random Glucose 233 70-105 mg/dL Lactic Acid Level 3.6 1.1 0.8-2.5 mmol/L Total Calcium 9.7 8.5-10.1 mg/dL Troponin I High Sensitivity 13 4-75 ng/L Whole Blood Glucose 119 136 70-110 MG/DL Assessment/Plan Assessment/Plan ASSESSMENT: THIS IS A 68 YR OLD MAN WITH 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 HTN DM II UNCONTROLLED HYPERLIPIDEMIA MIXED BPH WITH OBS GERD S/P R HEATHER - 08/2024 HE PRESENTED WITH ACUTE DEHYDRATION, ASSOCIATED WITH OLLIE, LEUKOCYTOSIS, TACHYCARDIA HX OF BRB IN STOOL ON ELIQUIS PLAN: HYDRATE WITH IVF AND PUSH ORAL HYDRATION HOLD GLP1 AND METFORMIN CONT ANALGESICS WITH HYDROCODONE INCREASE GABAPENTIN NEEDED MORPHINE PRN FOR SEVERE PAIN ONLY MONITOR H/H AND RENAL FN CLOSELY RESUME ELIQUIS FOR DVT PROPHYLAXIS IF H/H STABLE INCREASE REHAB TOLERATED CXR CLEAR AND SURGICAL SITE LOOKS GOOD PENDING UA TO R/O UTI BUT LEUKOCYTOSIS MAY ALSO BE REACTIVE WELL CONTINUE SUPPORTIVE MEASURES MELANIE BROOKS MD Sep 09, 2024 19:49
[2024-09-09 19:53] VITALS: BP 117/65; PULSE 77; RESP 18; TEMP 97.8
[2024-09-09] MEDS ORDERED: acetaMINOPHEN 325 MG TAB PO PRN ×2 (20:00)
[2024-09-09] MEDS ORDERED: PoTASSium chloRIDE 10MEQ/100ML 100 ML IV PRN (20:00)
[2024-09-09] MEDS ORDERED: MAG/ALUM/SIMETH 30 ML UDCUP PO PRN (20:00)
[2024-09-09] MEDS ORDERED: PoTASSium chl 10% ELIXIR 20MEQ 20 MEQ/15 ML UDCUP PO PRN (20:00)
[2024-09-09] MEDS ORDERED: PoTASSium chloRIDE 20MEQ ER 20 MEQ ERTAB PO PRN (20:00)
[2024-09-09] MEDS ORDERED: doCUSate SODIUM 100 MG CAP PO PRN (20:00)
[2024-09-09] MEDS ORDERED: CYCLOBENZAPRINE HCL 10 MG TABLET PO PRN (20:00)
[2024-09-09] MEDS ORDERED: ondanSETRON 4MG INJ IV PRN (20:00)
[2024-09-09] MEDS: GABAPENTIN 300 MG CAPSULE PO SCH (21:17)
[2024-09-09] MEDS: APIXaban 2.5 MG TABLET PO SCH (21:17)
[2024-09-10] VITALS (7 sets, daily range): BP systolic 125–154; BP diastolic 69–74; PULSE 75–86; RESP 17–20; TEMP 98–98.4; O2SAT 96–98
[2024-09-10] MEDS: HYDROcodone/APAP 5/325 1 TAB TABLET PO PRN ×2 (00:54→17:01)
[2024-09-10 06:20] LABS: CREATININE 0.9 mg/dL (0.5-1.3); POTASSIUM 3.9 mmol/L (3.5-5.1)
[2024-09-10 07:51] LABS: HEMATOCRIT 32.5 % (42-54); MEAN CORPUSCULAR HGB CONC 33.5 g/dL (32.0-36.0); MEAN CORPUSCULAR VOLUME 92.3 fL (79-99); RED BLOOD CELL COUNT(AUTO) 3.52 MIL/uL (4.50-6.20); RED CELL DISTRIBUTION WIDTH 13.2 % (11.0-15.5); WHITE BLOOD COUNT (AUTO) 9.9 K/uL (4.8-10.8)
[2024-09-10] MEDS: PANTOPrazole 40 MG TAB DR PO SCH (10:38)
[2024-09-10] MEDS: EMPAGLIFLOZIN 10MG TABLET PO SCH (10:39)
[2024-09-10] MEDS ORDERED: ASPI-1443 PO (10:42)
[2024-09-10] MEDS ORDERED: PoTASSium chloRIDE 10MEQ SR 10 MEQ/TAB TAB.SR.24H PO PRN (11:00)
[2024-09-10] MEDS ORDERED: CYCLOBENZAPRINE HCL 10 MG TABLET PO PRN (11:00)
[2024-09-10] MEDS ORDERED: ASPIRIN 81 MG EC TAB PO SCH (11:00)
[2024-09-10 12:53] LABS: APPEARANCE,URINE CLEAR (CLEAR); BILIRUBIN,URINE NEGATIVE (NEGATIVE); COLOR,URINE LIGHT-YELLOW (YELLOW); GLUCOSE, URINE (UA) >=1000 mg/dL (NEGATIVE); KETONES,URINE 10 mg/dL (NEGATIVE); LEUKOCYTE ESTERASE ,URINE NEGATIVE Leu/uL (NEGATIVE); NITRATE,URINE NEGATIVE (NEGATIVE); PROTEIN,URINE 30 mg/dL (NEGATIVE)
[2024-09-10 12:58] LABS: BACTERIA,URINE RARE /HPF (None Seen); RBC,URINE 0-1 /HPF (0-1)
[2024-09-10] MEDS: morPHINE 2 MG SYG IVP PRN (13:19)
[2024-09-10] MEDS: ASPIRIN 81 MG EC TAB PO ONE (13:19)
--- NOTE | 2024-09-10 13:44 | PN ---
Subjective Review of Systems PROGRESS NOTE Date of Visit: Sep 10, 2024 Time of Visit: 13:38 Events since last encounter PATIENT FEELING BETTER Subjective CONTINUES WITH R HIP PAIN BUT BETTER AND WEAKNESS MUCH IMPROVED General: No Fever, No Chills, No Night Sweats, No Fatigue, No Malaise, No Appetite, No Other HEENT: No Head Aches, No Visual Changes, No Eye Pain, No Ear Pain, No Dysphasia, No Sinus Congestion, No Post Nasal Drip, No Sore Throat, No Other Cardiovascular: No: Chest Pain, Palpitations, Orthopnea, Paroxysmal Noc. Dyspnea, Edema, Lt Headedness, Other Gastrointestinal: No: Nausea, Vomiting, Abdominal Pain, Diarrhea, Constipation, Melena, Hematochezia, Other Genitourinary: No Dysuria, No Frequency, No Incontinence, No Hematuria, No Retention, No Other Musculoskeletal: No: other, neck pain, shoulder pain, arm pain, back pain, hand pain, leg pain, foot pain Skin: No Urticaria, No Rash, No Other Neurological: No: Weakness, Numbness, Incoordination, Change in speech, Confusion, Seizures, Other Objective Vitals and I/O Vital Sign (Last 24 Hours) 09/09/24 09/10/24 17:46 12:00 Temp 98.4 Pulse 79 Resp 20 B/P (MAP) 154/74 Pulse Ox 98 O2 Delivery Room Air O2 Flow Rate 0 FiO2 21 Intake & Output (last 24hrs) 09/09/24 09/09/24 09/10/24 15:00 23:00 07:00 Intake Total 240 ml Balance 240 ml General: Alert, Oriented X3, Cooperative, No acute distress HEENT: Atraumatic, PERRLA, EOMI, Mucous membr. moist/pink Neck: Supple, No JVD, No thyromegaly Lungs: Clear to auscultation, Normal air movement Heart: Regular rate, Regular rhythm, Normal S1, Normal S2 Abdomen: Normal bowel sounds, Soft, No tenderness Extremities: No clubbing, No cyanosis, No edema Skin: No rashes, No breakdown Neuro: Normal speech, Strength at 5/5 X4 ext, Normal tone, Sensation intact, Cranial nerves 3-12 NL Psych/Mental Status: Mental status NL, Mood NL, Thoughts/Content NL Results RADIOLOGY: [] EKG: [] Laboratory Tests Test 09/09/24 17:00 09/09/24 17:37 09/09/24 19:37 09/10/24 05:01 Lactic Acid Level 1.1 mmol/L (0.8-2.5) Whole Blood Glucose 119 MG/DL (70-110) H 136 MG/DL (70-110) H Sodium Level 140 mmol/L (136-145) Potassium Level 3.9 mmol/L (3.5-5.1) Chloride Level 107 mmol/L (101-111) Carbon Dioxide Level 24 mmol/L (21-32) Blood Urea Nitrogen 17 mg/dL (7-18) Creatinine 0.9 mg/dL (0.5-1.3) Glomerular Filtration Rate Calc 94 mL/min (>90) Random Glucose 102 mg/dL (70-105) # Total Calcium 8.0 mg/dL (8.5-10.1) L Test 09/10/24 05:36 09/10/24 06:53 09/10/24 11:40 09/10/24 12:00 Whole Blood Glucose 112 MG/DL (70-110) H 112 MG/DL (70-110) H White Blood Count 9.9 K/uL (4.8-10.8) # Red Blood Count 3.52 MIL/uL (4.50-6.20) #L Hemoglobin 10.9 g/dL (14.0-18.0) #L Hematocrit 32.5 % (42-54) #L Mean Corpuscular Volume 92.3 fL (79-99) Mean Corpuscular Hemoglobin 31.0 pg (27.0-33.0) Mean Corpuscular Hemoglobin Concent 33.5 g/dL (32.0-36.0) Red Cell Distribution Width 13.2 % (11.0-15.5) Platelet Count 388 K/uL (130-400) # Mean Platelet Volume 9.8 fL (7.5-10.5) Nucleated Red Blood Cells 0.0 % (0.0-0.19) Urine Color LIGHT-YELLOW (YELLOW) Urine Appearance CLEAR (CLEAR) Urine pH 6.0 (5.0-8.0) Urine Specific [place] 1.022 (1.001-1.031) Urine Protein 30 mg/dL (NEGATIVE) H Urine Glucose (UA) >=1000 mg/dL (NEGATIVE) H Urine Ketones 10 mg/dL (NEGATIVE) H Urine Occult Blood +- (TRACE) (NEGATIVE) H Urine Nitrate NEGATIVE (NEGATIVE) Urine Bilirubin NEGATIVE mg/dL (NEGATIVE) Urine Urobilinogen 2.0 mg/dL (0.2-1.0) H Urine Leukocyte Esterase NEGATIVE Hannah/uL Urine RBC 0-1 /HPF (0-1) Urine WBC 2-5 /HPF (0-1) H Urine Bacteria RARE /HPF (None Seen) Medications Current Medications Lactated Ringer's 1,000 ml @ 125 mls/hr ONCE ONCE IV Last administered on 08/30 12:39; Start 09/09/24 at 12:00; Stop 09/09/24 at 19:59; Status DC Morphine Sulfate 4 mg ONCE ONCE IVP Last administered on 09/09/24at 12:39; Start 09/09/24 at 12:00; Stop 09/09/24 at 12:06; Status DC Ondansetron HCl 4 mg ONCE ONCE IVP Last administered on 09/09/24at 12:39; Start 09/09/24 at 12:00; Stop 09/09/24 at 12:05; Status DC Ceftriaxone Sodium 1 gm/ Sodium Chloride 50 ml @ 100 mls/hr ONCE ONCE IV; Start 09/09/24 at 12:00; Stop 09/09/24 at 12:09; Status DC Pantoprazole Sodium 80 mg ONCE ONCE IVP Last administered on 09/09/24at 12:39; Start 09/09/24 at 12:00; Stop 09/09/24 at 12:05; Status DC Ceftriaxone Sodium 1 gm ONCE ONCE IVPB Last administered on 09/09/24at 12:39; Start 09/09/24 at 12:30; Stop 09/09/24 at 12:31; Status DC Lactated Ringer's 1,500 ml @ 0 mls/hr ONCE ONCE IV Last administered on 09/09/24at 13:18; Start 09/09/24 at 12:30; Stop 09/09/24 at 12:35; Status DC Vancomycin HCl 1 gm ONCE ONCE IV Last administered on 09/09/24at 13:55; Start 09/09/24 at 12:30; Stop 09/09/24 at 12:34; Status DC Piperacillin Sod/ Tazobactam Sod 3.375 gm ONCE ONCE IV Last administered on 09/09/24at 13:17; Start 09/09/24 at 14:00; Stop 09/09/24 at 14:01; Status DC Sodium Chloride 1,000 ml @ 125 mls/hr Q8H IV Last administered on 09/10/24at 13:23; Start 09/09/24 at 14:30; Stop 10/09/24 at 14:29 Gabapentin 300 mg TID PO Last administered on 09/10/24at 10:39; Start 09/09/24 at 21:00; Stop 10/09/24 at 20:59 Acetaminophen/ Hydrocodone Bitart 1 tab Q6H PRN PO; Start 09/09/24 at 14:30; Stop 09/09/24 at 19:48; Status DC Insulin Human Regular INSULIN SLIDING SCAL... ACHS SQ; Start 09/09/24 at 16:30; Stop 09/09/24 at 19:51; Status DC Apixaban 2.5 mg BID PO Last administered on 09/09/24at 21:17; Start 09/09/24 at 21:00; Stop 09/10/24 at 10:40; Status DC Docusate Sodium 100 mg BID PRN PO; Start 09/09/24 at 20:00; Stop 10/09/24 at 19:59 Empaglifozin 10 mg DAILY PO Last administered on 09/10/24at 10:39; Start 09/10/24 at 09:00; Stop 10/10/24 at 08:59 Acetaminophen/ Hydrocodone Bitart 1 PO Q 6 HR PRN MODER... Q6H6 PRN PO; Start 09/09/24 at 20:00; Stop 09/09/24 at 19:51; Status DC Pantoprazole Sodium 40 mg DAILY PO Last administered on 09/10/24at 10:38; Start 09/10/24 at 09:00; Stop 10/10/24 at 08:59 Tamsulosin HCl 0.4 mg DAILYDINNER PO; Start 09/10/24 at 17:00; Stop 10/10/24 at 16:59 Cyclobenzaprine HCl 5 mg TIDP PRN PO; Start 09/09/24 at 20:00; Stop 09/10/24 at 10:49; Status DC Morphine Sulfate 2 mg Q4H PRN IVP Last administered on 09/10/24at 13:19; Start 09/09/24 at 20:00; Stop 09/16/24 at 19:59 Acetaminophen 650 mg Q6H PRN PO; Start 09/09/24 at 20:00; Stop 10/09/24 at 19:59 Acetaminophen 650 mg Q4H PRN PO; Start 09/09/24 at 20:00; Stop 10/09/24 at 19:59 Ondansetron HCl 4 mg Q6H PRN IV; Start 09/09/24 at 20:00; Stop 10/09/24 at 19:59 Al Hydroxide/Mg Hydroxide 30 ml Q6H PRN PO; Start 09/09/24 at 20:00; Stop 10/09/24 at 19:59 Lactulose 20 gm BID PRN PO; Start 09/09/24 at 20:00; Stop 10/09/24 at 19:59 Insulin Human Regular INSULIN SLIDING SCAL... ACHS SQ; Start 09/09/24 at 21:00; Stop 10/09/24 at 20:59 Potassium Chloride 100 ml @ 100 mls/hr AD PRN IV; Start 09/09/24 at 20:00; Stop 10/09/24 at 19:59 Potassium Chloride 10 meq AD PRN PO; Start 09/09/24 at 20:00; Stop 10/09/24 at 19:59 Potassium Chloride 10 meq AD PRN PO; Start 09/09/24 at 20:00; Stop 09/10/24 at 10:51; Status DC Acetaminophen/ Hydrocodone Bitart 1 tab Q6H PRN PO Last administered on 09/10/24at 06:52; Start 09/09/24 at 20:00; Stop 09/14/24 at 19:59 Aspirin 81 mg ONCE PO; Start 09/10/24 at 11:00; Stop 09/10/24 at 10:49; Status DC Aspirin 81 mg DAILY PO; Start 09/11/24 at 09:00; Stop 10/11/24 at 08:59 Aspirin 81 mg ONCE ONCE PO Last administered on 09/10/24at 13:19; Start 09/10/24 at 11:00; Stop 09/10/24 at 11:01; Status DC Cyclobenzaprine HCl 5 mg TID PRN PO; Start 09/10/24 at 11:00; Stop 10/09/24 at 19:59 Potassium Chloride 10 meq AD PRN PO; Start 09/10/24 at 11:00; Stop 10/09/24 at 19:59 Assessment/Plan ASSESSMENT: THIS IS A 68 YR OLD MAN WITH 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 HTN DM II UNCONTROLLED HYPERLIPIDEMIA MIXED BPH WITH OBS GERD S/P R HEATHER - 08/2024 HE PRESENTED WITH ACUTE DEHYDRATION, ASSOCIATED WITH OLLIE, LEUKOCYTOSIS, TACHYCARDIA HX OF BRB IN STOOL ON ELIQUIS PLAN: RENAL FN BACK TO BASELINE ENCOURAGE ORAL HYDRATION CONT HOLDING GLP1 AND METFORMIN CONT ANALGESICS WITH HYDROCODONE GABAPENTIN INCREASED TO 300 MG PO TID WEAN MORPHINE MONITOR H/H AND RENAL FN CLOSELY HOLDING STOOL WITH DROP IN H/H WITH HYDRATION MONITOR STOOLS AND RESUME ASA 81 MG DAILY ON LY CONT PPI FOR STRESS ULCER PROPHYLAXIS INCREASE REHAB TOLERATED CXR CLEAR AND SURGICAL SITE LOOKS GOOD PENDING UA TO R/O UTI - STILL PENDING TO COLLECT LEUKOCYTOSIS MUCH IMPROVED CONTINUE SUPPORTIVE MEASURES POSSIBLE D/C PLANNING LATER TODAY IF PAIN CONTROLLED AND NO NOTABLE BLOOD IN STOOL MELANIE BROOKS MD Sep 10, 2024 13:44
[2024-09-10] MEDS ORDERED: GABA300C PO (13:46)
[2024-09-10] MEDS: tamSULOsin HCL 0.4 MG CAP.ER.24H PO SCH (17:00)
[2024-09-10] MEDS: MAGNESIUM HYDROXIDE 30 ML/UDCUP PO ONE (17:01)
--- NOTE | 2024-09-10 18:19 | NUR ---
SPEECH TRIGGER COMPLETED / Hx of CVA and dehydration during this admission. Pt IS A 68 Y.O. MALE ADMITTED SECONDARY TO DEHYDRATION AND TACHYCARDIA. Pt HAS A PAST MEDICAL HISTORY SIGNIFICANT FOR CVA W/ Hx OF TIA; CEREBRAL ATROPHY, HTN, DM II, HYPERLIPIDEMIA AND GERD. PATIENT PRESENTED WITH NO PULMONARY INFILTRATES ON MOST RECENT CHEST X-RAY (09/09/2024). Pt CURRENTLY ON CONSISTENT CARB DIET (REGULAR TEXTURE AND THIN LIQUIDS). PER NURSE, Pt TOLERATING DIET WITH NO OVERT S/S OF ASPIRATION. PLEASE REQUEST SPEECH THERAPY SERVICES FOR SKILLED BEDSIDE SWALLOW EVALUATION IF Pt PRESENTS WITH +S/S OF ASPIRATION SUCH COUGH RESPONSE, THROAT CLEAR, OR WET VOCAL QUALITY DURING ORAL INTAKE. ALL QUESTIONS ANSWERED AT THIS TIME. Addendum: 09/10/[address] CIERRA FAULKNER Amended: Links added.
[2024-09-10] MEDS: SENNOSIDES 8.6 MG TABLET PO SCH (20:56)
[2024-09-11] VITALS: BP 132/76; PULSE 89; RESP 20; TEMP 98.3
[2024-09-11 04:00] VITALS: BP 142/80; PULSE 81; RESP 20; TEMP 97.9
[2024-09-11 04:58] LABS: HEMATOCRIT 29.8 % (42-54); MEAN CORPUSCULAR HEMOGLOBIN 30.8 pg (27.0-33.0); MEAN CORPUSCULAR HGB CONC 33.9 g/dL (32.0-36.0); MEAN CORPUSCULAR VOLUME 90.9 fL (79-99); RED BLOOD CELL COUNT(AUTO) 3.28 MIL/uL (4.50-6.20); RED CELL DISTRIBUTION WIDTH 12.7 % (11.0-15.5); WHITE BLOOD COUNT (AUTO) 7.4 K/uL (4.8-10.8)
[2024-09-11 08:00] VITALS: BP 143/83; PULSE 80; RESP 18; TEMP 97.9; O2SAT 96
[2024-09-11] MEDS: ASPIRIN 81 MG EC TAB PO SCH (08:52)
[2024-09-11] MEDS: LACTULOSE 20 GM/30 ML UDCUP PO PRN (09:06)
[2024-09-11 12:00] VITALS: BP 140/80; PULSE 81; RESP 18; TEMP 98.3
[2024-09-11 16:00] VITALS: BP 145/78; PULSE 84; RESP 16; TEMP 98.2
--- NOTE | 2024-09-11 16:26 | NUR ---
DCP Patient states lives with Corinne Lipscomb, Spouse [phone] in a rental trailer with four step entrance and shower walk in. 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 States he has a shower chair and walker with a seat. States able to complete ADL's on his own. Denies home health services, home care provider or dialysis. PCP - Cassandra Dennis MD Pharmacy - [facility] or [facility]. Upon discharge, Corinne Lipscomb, Spouse [phone] [place] and assist with care, as needed. HX - DX OA, status post Total Right Hip Arthroplasty with Dr. Phelps 08/25/2024 Addendum: 09/11/24 at 1630 by SERGIO VARELA RN CM Amended: Links added.
--- NOTE | 2024-09-11 16:45 | NUR ---
ORTHO COORDINATOR: TEACHING REGARDING HYDRATION AND HIGH PROTEIN. PATIENT IN BED. AT BEDSIDE. R HIP SURGICAL SITE HEALED. NO SIGNS OF INFECTION. INCENTIVE SPIROMETER AT BEDSIDE. REVIEWED HISTORY FROM BEING DISCHARGED FROM INPATIENT REHAB TO CURRENT ADMISSION. DISCUSSED IMPORTANCE OF HIGH PROTEIN, LOW SUGAR ITEMS DUE TO DIABETES TO AID WITH HEALING AND STRENGTH. PROVIDED EXAMPLES OF HIGH PROTEIN MEATS AND SNACKS. HYDRATION OPTIONS REVIEWED. REVIEWED NUTRITION LABELS OF ALL OPTIONS. NO ADDITIONAL QUESTIONS/CONCERNS AT THIS TIME.
--- NOTE | 2024-09-11 17:30 | NUR ---
PATIENT DISCHARGED HOME WITH BELONGINGS AND COPY OF DISCHARGE SUMMARY.
--- NOTE | 2024-09-11 23:49 | DS ---
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 HE PRESENTED WITH ACUTE DEHYDRATION ASSOCIATED WITH HYPOTENSION, OLLIE AND TACHYCARDIA WITH INTRACTABLE RIGHT HIP PAIN AND REACTIVE LEUKOCYTOSIS. HE RESPONDED WELL TO IVF HYDRATION. HIS INFECTIOUS WORK UP WAS NEGATIVE. HE HAD A HISTORY OF RECENT BRB IN STOOL ON ELIQUIS AND HAD BEEN RECENTLY DISCONTINUED. HIS H/H REMAINED STABLE AFTER HYDRATION AND NO SIGNS OF BLOOD IN HIS STOOL OFF OF ELIQUIS AND STARTED ON ASA THERAPY INSTEAD. HIS MEDICATIONS WERE ADJUSTED FOR BETTER PAIN CONTROL AND HIS GLP1 AND HIS METFORMIN WERE HELD UNTIL FURTHER NOTICE. HE WAS GIVEN SAMPLES OF LINZESS FOR OPIOID INDUCED CONSTIPATION. ONCE HE WAS STABLE WITH GOOD PAIN CONTROL, GOOD ORAL INTAKE AND AMBULATING WELL HE WAS DISCHARGED HOME. DIET: ADA DIET ACTIVITY: PROGRESSIVE AMBULATION CONDITION: STABLE EQUIPMENT: NONE FOLLOW UP APPOINTMENT(S): DR DENNIS IN 2-5 DAYS DISPOSITION: HOME CODE STATUS: FULL MEDICATION RECONCILIATION : Home Medications were reconciled with hospital medications upon discharge and discussed with patient and/or responsible constitution party. D/C ELIQUIS ADD ASA 81 MG PO DAILY INCREASE HYDROCODONE 5/325 TO 2 PO Q 6 HRS PRN INCREASE GABAPENTIN 300 MG PO TID SAMPLES OF LINZESS 145 MG PO DAILY PRN HOLD TESTOSTERONE UNTIL FURTHER NOTICE HOLD TRULICITY UNTIL FURTHER NOTICE HOLD METFORMIN UNTIL FURTHER NOTICE ^ Home Meds Active Scripts Gabapentin (Neurontin) 300 Mg Capsule, 1 CAP PO TID for 30 Days, #90 CAP 0 Refills Prov:MELANIE DENNIS MD 09/10/24 Aspirin (Aspirin EC) 81 Mg Tablet.dr, 1 TAB PO DAILY for 30 Days, #30 TAB 0 Refills Prov:MELANIE DENNIS MD 09/10/24 Hydrocodone/Acetaminophen (Hydrocodon-Acetaminophen 5-325) 5 Mg-325 Mg Tablet, 1-2 TAB PO Q6HPRN PRN for pain for 10 Days, #30 TAB 0 Refills Prov:MELANIE DENNIS MD 09/09/24 Cyclobenzaprine HCl (Cyclobenzaprine HCl) 5 Mg Tablet, 5 MG PO TIDP PRN for spasm, #30 TAB Prov:MELANIE DENNIS MD 09/09/24 Docusate Sodium (Colace) 100 Mg Capsule, 100 MG PO BID PRN for CONSTIPATION, #60 CAP Prov:MELANIE DENNIS MD 09/09/24 Pantoprazole Sodium (Pantoprazole Sodium) 40 Mg Tablet.dr, 40 MG PO DAILY for 90 Days, #90 TAB Prov:MELANIE DENNIS MD 09/09/24 Tamsulosin HCl (Flomax) 0.4 Mg Cap.er.24h, 0.4 MG PO DAILYDINNER, #90 CAPSULE. Prov:MELANIE DENNIS MD 11/19/23 Reported Medications Rosuvastatin Calcium (Rosuvastatin Calcium) 40 Mg Tablet, 40 MG PO HS, TAB 08/20/24 Empagliflozin (Jardiance) 10 Mg Tablet, 10 MG PO DAILY, TAB 06/19/23 Discontinued Reported Medications [Testosterone] No Conflict Check, INJ Q2WK 08/20/24 Metformin HCl (Metformin HCl) 1,000 Mg Tablet, 1000 MG PO BID, TAB 08/20/24 [Trulicity] No Conflict Check, 3 MG SQ SAT 08/20/24 Discontinued Scripts Testosterone Cypionate (Testosterone Cypionate) 200 Mg/Ml Vial, 1 ML IM [id number] for 28 Days, #2 ML 0 Refills Prov:MELANIE DENNIS MD 09/09/24 Dulaglutide (Trulicity) 1.5 Mg/0.5 Ml Pen.injctr, 3 MG SQ QWEEK for 90 Days, #2 ML Prov:MELANIE DENNIS MD 09/09/24 Gabapentin (Gabapentin) 100 Mg Capsule, 100 MG PO TID for 30 Days, #90 CAP Prov:MELANIE DENNIS MD 09/09/24 Apixaban (Eliquis) 2.5 Mg Tablet, 2.5 MG PO BID for 30 Days, #60 TAB Prov:MELANIE DENNIS MD 09/09/24 Metformin HCl (Metformin HCl) 500 Mg Tablet, 500 MG PO BID for 90 Days, #180 TAB Prov:MELANIE DENNIS MD 09/09/24 Aspirin (ASPIRIN 81 MG ECTAB) 81 Mg Ectab, 81 MG PO DAILY, #90 TAB.EC Prov:MELANIE DENNIS MD 11/20/23 Omeprazole (Omeprazole) 40 Mg Capsule.dr, 40 MG PO AM, #90 CAP Prov:MELANIE DENNIS MD 11/19/23 MELANIE DENNIS MD Sep 11, 2024 23:49
== END 2024-09-11 17:50 | disposition home or self-care (01) | DRG 315 ==
LOC: EDH 11:19 → EDHIP 14:22 → OBSVTOIN 14:22 → 3AH 16:15
PROVIDERS: ADMIT Internal Medicine; ATTEND Internal Medicine
DX: I95.9 Hypotension, unspecified (principal); N13.8 Other obstructive and reflux uropathy; N17.9 Acute kidney failure, unspecified; E86.0 Dehydration; I10 Essential (primary) hypertension; E78.2 Mixed hyperlipidemia; K21.9 Gastro-esophageal reflux disease without esophagitis; Z96.641 Presence of right artificial hip joint; K59.03 Drug induced constipation; E11.9 Type 2 diabetes mellitus without complications; N40.1 Benign prostatic hyperplasia with lower urinary tract symptoms; T40.2X5A Adverse effect of other opioids, initial encounter; Y92.89 Other specified places as the place of occurrence of the external cause; Z79.01 Long term (current) use of anticoagulants; Z79.82 Long term (current) use of aspirin; Z79.899 Other long term (current) drug therapy; Z82.49 Family history of ischemic heart disease and other diseases of the circulatory system; Z83.3 Family history of diabetes mellitus; Z86.73 Personal history of transient ischemic attack (TIA), and cerebral infarction without residual deficits
CPT/HCPCS: 36415; 71045; 74176; 80048; 81001; 82948; 83605; 84484; 85025; 85027; 85610; 85730; 86850; 86900; 86901; 87040; 93005; G0378; J0696; J1815; J2270; J2405; J2470; J2543; J3370; J7030

== ENCOUNTER → 2024-12-10 | Outpatient (CLI) | payer OTHER, MEDICARE ==
[~2024-12-10] MED LIST changes: -AEC81 PO; +ASPI-1443 PO; +CYCL5TAB3 PO; +DOCU-116 PO; +GABA300C PO; +HYDR-4060 PO; -METF-446 PO; -OMEP40CA21 PO; +PANT40TA54 PO; -TAMS-1 PO; +TAMS-55 PO; -TESTOSTERONE INJ; -TRULICITY SQ
== END | disposition home or self-care (01) ==
LOC: LAB 11:04
PROVIDERS: ATTEND Urology
DX: R97.20 Elevated prostate specific antigen [PSA] (principal)
CPT/HCPCS: 36415; 84153; 84154

== ENCOUNTER → 2024-12-25 | Outpatient (CLI) | payer OTHER ==
--- NOTE | 2024-12-25 17:05 | HMCIMG ---
HAND 3+VWS RT HISTORY: Right hand pain COMPARISON: None TECHNIQUE: 3 images the right hand were obtained. FINDINGS: There is no acute displaced fracture or dislocation. Degenerative changes are seen. IMPRESSION: 1. Findings as described above.
== END | disposition home or self-care (01) ==
LOC: RAH 15:49
PROVIDERS: ATTEND Internal Medicine
DX: M19.041 Primary osteoarthritis, right hand (principal); M79.641 Pain in right hand
CPT/HCPCS: 73130

== ENCOUNTER → 2025-02-20 | Outpatient (CLI) | payer OTHER | END | disposition home or self-care (01) | LOC: LAB 09:56 | PROVIDERS: ATTEND Urology | DX: E29.1 Testicular hypofunction (principal) | CPT/HCPCS: 36415; 84402; 84403 ==

== ENCOUNTER → 2025-06-18 | Outpatient (CLI) | payer OTHER ==
[2025-06-18 08:04] LABS: IMMATURE GRANULOCYTE ABSOLUTE 0.02 K/uL (0-1); NUCLEATED RED BLOOD CELLS 0.0 % (0.0-0.19); PLATELET COUNT (AUTO) 265 K/uL (130-400); RED BLOOD CELL COUNT(AUTO) 5.17 MIL/uL (4.50-6.20); RED CELL DISTRIBUTION WIDTH 12.6 % (11.0-15.5); WHITE BLOOD COUNT (AUTO) 6.1 K/uL (4.8-10.8)
[2025-06-18 08:21] LABS: CREATININE 1.3 mg/dL (0.5-1.3); GLOMERULAR FILTR. RATE CALC 60.0 mL/min (>90); GLUCOSE,RANDOM 321.0 mg/dL (70-105); SODIUM SERUM 140.0 mmol/L (136-145); UREA NITROGEN, BLOOD 19.0 mg/dL (7-18)
== END | disposition home or self-care (01) ==
LOC: LAB 07:32
PROVIDERS: ATTEND Urology
DX: E29.1 Testicular hypofunction (principal)
CPT/HCPCS: 36415; 80048; 84402; 84403; 85025